=== PATIENT | male | born 1945 | race Caucasian/White ===

== ENCOUNTER 2018-12-28 16:09 | Inpatient (IN) | payer MEDICARE ==
[~2018-12-28] VITALS: Ht 185.4 cm; Wt 84.6 kg
[2018-12-28] MEDS: LevoFLOXacin IV 750 MG in APPROPRIATE DILUENT 1 EA IV SCH (00:50)
[~2018-12-28 16:09] MED LIST: AUGM875T28 PO; IBUP200C25 PO; TYLE325T5 PO; ZANT150T15 PO
[2018-12-28] MEDS ORDERED: NS 500 ML IV ONE ×2 (16:45→20:45)
[2018-12-28] MEDS ORDERED: ACETAMINOPHEN TAB 650MG DOSE (2X325MG) PO ONE (16:45)
[2018-12-28] MEDS ORDERED: ALBUTEROL SULFATE 2.5 MG/0.5 ML INH NEB SOLN INH ONE (16:45)
[2018-12-28] MEDS ORDERED: IPRATROPIUM 0.5MG/ALBUTEROL 2.5MG INH SOL UD 3ML (DUONEB)(J7620) NEB ONE (16:45)
--- NOTE | 2018-12-28 17:45 | REP ---
Clinical: Cough and dyspnea. Technique: AP and lateral. Findings: There is a large right hilar mass which represents a new finding as compared to prior chest CT dated 03/26/2016. Basilar atelectasis and possible small right pleural reaction cannot be excluded. Remainder examination demonstrates chronic appearing changes. Cardiac silhouette is within normal limits. Skeletal structures demonstrate degenerative changes. Impression: Large right hilar mass and suspected basilar atelectasis with small right pleural reaction. Electronically Signed by Jose Appiah MD 12/28/2018 05:36 P
[2018-12-28 18:16] LABS: VENOUS BASE EXCESS 6.5 (-2.0-2.0); VENOUS HCO3 36.8 MEQ/L (23.0-27.0); VENOUS O2 SATURATION 85.3 % (60.0-80.0); VENOUS PARTIAL PRESSURE CO2 83.3 mmHg (38.0-50.0); VENOUS PARTIAL PRESSURE O2 54.5 mmHg (30.0-50.0); VENOUS PH 7.263 UNITS (7.330-7.430); VENOUS TOTAL CO2 39.4 MEQ/L (24.0-28.0)
[2018-12-28 18:25] LABS: BASO % 0.2 % (0.0-1.0); EOS % 0.1 % (0.0-3.0); HEMATOCRIT 44.4 % (42.0-52.0); HEMOGLOBIN 13.4 g/dl (13.5-17.5); LYMPH # 0.6 10^3/uL (1.5-4.5); LYMPH % 4.7 % (24.0-44.0); MEAN CORPUSCULAR HEMOGLOBIN 28.8 pg (27.0-33.0); MEAN CORPUSCULAR HGB CONC 30.2 g/dl (32.0-36.5); MEAN CORPUSCULAR VOLUME 95.3 fl (80.0-96.0); MONO # 1.3 10^3/uL (0.0-0.8); MONO % 10.9 % (0.0-5.0); NEUTROPHILS # 9.8 10^3/uL (1.8-7.7); NEUTROPHILS % 83.7 % (36.0-66.0); PLATELET COUNT, AUTOMATED 235 10^3/uL (150-450); RED BLOOD COUNT 4.66 10^6/uL (4.30-6.10); WHITE BLOOD COUNT 11.7 10^3/uL (4.0-10.0)
[2018-12-28 18:48] LABS: INFLUENZA A AMPLIFICATION NEGATIVE (NEGATIVE); INFLUENZA B AMPLIFICATION NEGATIVE (NEGATIVE)
[2018-12-28 18:56] LABS: ALBUMIN 3.3 GM/DL (3.2-5.2); ALT/SGPT 26 U/L (12-78); BILIRUBIN,DIRECT 0.3 MG/DL (0.0-0.2); BILIRUBIN,TOTAL 0.6 MG/DL (0.2-1.0); BLOOD UREA NITROGEN 21 MG/DL (7-18); CALCIUM LEVEL 8.3 MG/DL (8.8-10.2); CARBON DIOXIDE LEVEL 37 MEQ/L (21-32); CHLORIDE LEVEL 103 MEQ/L (98-107); CPK CREATINE PHOSPHOKINASE 48 U/L (39-308); CREATININE FOR GFR 0.91 MG/DL (0.70-1.30); GLOMERULAR FILTRATION RATE > 60.0 (>42); GLUCOSE, FASTING 98 MG/DL (70-100); MB/CK RELATIVE INDEX 2.71 (< OR =4); NT-PRO BNP 1714 PG/ML (<450); POTASSIUM SERUM 4.2 MEQ/L (3.5-5.1); SODIUM LEVEL 142 MEQ/L (136-145); THYROID STIMULATING HORMONE 0.808 uIU/ML (0.358-3.740); TOTAL PROTEIN 7.1 GM/DL (6.4-8.2); TROPONIN I 0.03 NG/ML (< 0.10)
[2018-12-28 19:04] LABS: INR 1.14; PROTHROMBIN TIME 14.8 SECONDS (12.1-14.4)
[2018-12-28] MEDS ORDERED: ISOVUE-370 76% 100ML VIAL (Q9967) As Ordered ONE (19:41)
--- NOTE | 2018-12-28 20:07 | ECGEPIP ---
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
--- NOTE | 2018-12-28 20:17 | REP ---
Clinical: Hypoxia. Technique: Axial contrast enhanced images from the thoracic inlet to the upper abdomen with coronal and sagittal re-formations using pulmonary embolus technique. 100 ml Isovue 370 intravenous contrast material administered without complication. Comparison: 03/26/2016. Findings: There is a 6.8 cm mass along the medial right upper lobe with mass effect and possible intraluminal extension/neoplastic thrombus into the superior vena cava as well as suspected obstruction of the right subclavian vein causing subcutaneous edema and infiltration in the right thoracic inlet and axillary region. These findings should be correlated with physical examination. Mediastinal adenopathy is appreciated with pretracheal lymph nodes measuring up to 2.5 cm. Right lower lobe consolidation along with bibasilar atelectasis and small right pleural reaction are also appreciated. Diffuse underlying chronic mild/moderate COPD/interstitial changes noted. No obvious pulmonary arterial embolus is appreciated. Thoracic aorta demonstrates atherosclerotic changes without aneurysm or dissection. Mild cardiomegaly and atherosclerotic changes to the coronary arteries are also identified without pericardial effusion. Osseous structures demonstrate degenerative changes without focal abnormality. Impression: 1. 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 Associated mediastinal adenopathy up to 2.5 cm. 2. Right lower lobe consolidation along with bibasilar atelectasis and small right pleural reaction. 3. Mild/moderate chronic COPD/emphysematous changes and scattered age-related interstitial changes. Electronically Signed by Jose Appiah MD 12/28/2018 08:08 P
[2018-12-28] MEDS ORDERED: AZITHROMYCIN 250 MG TAB PO ONE (20:45)
[2018-12-28] MEDS ORDERED: cefTRIAXone SOD 1 GM in D5W MINI-BAG PLUS 50 ML IV ONE (20:45)
[2018-12-28] MEDS ORDERED: ENOXAPARIN 100MG/1ML SYRINGE (J1650) SC ONE (20:45)
[2018-12-28] MEDS ORDERED: IPRATROPIUM 0.5MG/ALBUTEROL 2.5MG INH SOL UD 3ML (DUONEB)(J7620) NEB PRN (23:30)
[2018-12-29] VITALS (14 sets, daily range): BP systolic 91–127; BP diastolic 58–79; O2SAT 95–99
[2018-12-29] MEDS: LevoFLOXacin IV 750 MG in APPROPRIATE DILUENT 1 EA IV SCH ×2 (00:30→23:30)
--- NOTE | 2018-12-29 00:30 | HPEPDOC ---
[facility] Medical History & Physical Date of Admission Dec 28, 2018 Other Provider John Villegas MD History and Physical CHIEF COMPLAINT: shortness of breath HISTORY OF PRESENT ILLNESS: Roverto Bliss is a 73 YO M with extensive smoking history presents to the ED with SOB, decreased appetite, weakness and worsening fatigue for the past week. He does not have a primary care physician and thus has no known past medical history. He is accompanied by his daughter, who sees him every day at his house and has noticed he has not been eating his meals and today his breathing is labored with very light activity. He has cut down his smoking recently from 1-2 packs a day to 1-3 cigarettes a day. Usually, he is able to get around and can walk 2-3 blocks without fatigue or shortness of breath but lately he cannot make it from his living room to the bathroom without getting short of breath. He sleeps in a recliner because he is unable to lay flat comfortably. He has had a fever and chills for one day, reports headaches and lightheadedness. He denies any palpitations, face or neck swelling. PAST MEDICAL HISTORY: 1. Tobacco dependence PAST SURGICAL HISTORY: 1. Appendectomy 2. Tonsillectomy 3. Cholecystectomy SOCIAL HISTORY: . Current smoker with >50 pack year history Resides in [place]. Denies alcohol consumption FAMILY HISTORY: Noncontributory ALLERGIES: Please see below. REVIEW OF SYSTEMS: A 10-point ROS was conducted and was negative other than what was mentioned in the HPI HOME MEDICATIONS: Please see below. PHYSICAL EXAMINATION: VITAL SIGNS: Temperature 99.3, pulse 96, respiratory rate 24, blood pressure 117/56, pulse oximetry 94% on 6LNC GENERAL APPEARANCE: Tired-appearing, appears stated age, laying in bed sleeping, difficult to arouse due to fatigue/hearing difficulty, purse-lipped breathing HEENT: absence of teeth, moist mucus membranes, no swelling, no thyromegaly CARDIOVASCULAR: RRR, no murmurs/rubs/gallops, normal S1,S2 LUNGS: Decreased breath sounds in R lower and middle lobe, slight wheezing on exam, poor air entry, patient appears to be purse-lipped breathing ABDOMEN: Slightly tender to palpation in RUQ and RLQ, no guarding, +BS, soft MUSCULOSKELETAL: moves all extremities well EXTREMITIES: 1+ pitting edema in lower extremities bilaterally, no clubbing NEUROLOGICAL: CN 2-12 intact with no focal deficits appreciated PSYCHIATRIC: normal mood/normal affect LABORATORY DATA: See below. IMAGING: CXR: Large right hilar mass and suspected basilar atelectasis with small right pleural reaction. CT-A: 1. Large medial RUL mass with evidence for obstruction of the R Subclavian Chon as well as intraluminal extension/neoplastic thrombus into the adjacent Superior Vena Cava. Associated mediastinal adenopathy up to 2.5cm. 2. RLL consolidation along with bibasilar atelectasis and small R pleural reaction. 3. Mild/moderate chronic COPD/emphysematous changes and scattered age-related interstitial changes. MICROBIOLOGY: Please see below. ASSESSMENT: This is a 73 YO M with extensive tobacco use history with no known past medical history who presents with several days shortness of breath, weakness, decreased appetite found to have a large medial RUL mass concerning for obstruction of the R subclavian vein and suspicious for SVC syndrome. He will be admitted to the ICU for close observation. PLAN: 1. RUL mass: Per the patient's daughter, the patient was last seen 5 years ago by Collections Analyst Dr. Villegas for occupational exposure and suspicious lung nodule (location unknown). The patient was lost to follow up for surveillance. Given that this large mediastinal RUL mass appears to be obstructing the R subclavian vein, Dr. Sofia was called for concern of emergent care for SVC syndrome. -Clinical exam does not demonstrate facial or neck edema, no upper extremity edema or plethora at this time. Patient has no positional symptoms (worsening while bending forward or laying down) -Patient was found to be somewhat hypotensive (sBP 100s) on admission, but has responded appropriately to fluid resuscitation -Lovenox 1mg/kg Q12H -Continuous oxygen therapy +/- BiPaP if needed overnight -Consider oncology consultation in AM 2. Shortness of breath: Patient likely has undiagnosed COPD 2/2 extensive smoking history -CT-A suggests RLL consolidation, possibly community acquired PNA -Empiric Levaquin -DuoNebs Q2H PRN -Continuous Oxygen therapy and titration for saturation 88-92% -VBG demonstrates CO2 retention; likely chronic 3. Possible fluid overload: patient has peripheral edema and occasional wet cough; family reports peripheral edema is worse than usual -Will be cautious with fluid resuscitation for now -BNP 1714 -Consider Echo in the AM for further management DVT ppx: On Lovenox CODE STATUS: DNR/DNI Vital Signs Vital Signs Date Time Temp Pulse Resp B/P (MAP) Pulse Ox O2 Delivery O2 Flow Rate FiO2 12/28/18 23:17 101 24 90 Nasal Cannula 6.0 12/28/18 23:16 117/56 (76) 12/28/18 20:10 98.8 Laboratory Data Labs 24H Laboratory Tests 2 12/28/18 17:55: Immature Granulocyte % (Auto) 0.4, White Blood Count 11.7H, Red Blood Count 4.66, Hemoglobin 13.4L, Hematocrit 44.4, Mean Corpuscular Volume 95.3, Mean Corpuscular Hemoglobin 28.8, Mean Corpuscular Hemoglobin Concent 30.2L, Red Cell Distribution Width 14.3, Platelet Count 235, Neutrophils (%) (Auto) 83.7H, Lymphocytes (%) (Auto) 4.7L, Monocytes (%) (Auto) 10.9H, Eosinophils (%) (Auto) 0.1, Basophils (%) (Auto) 0.2, Neutrophils # (Auto) 9.8H, Lymphocytes # (Auto) 0.6L, Monocytes # (Auto) 1.3H, Eosinophils # (Auto) 0.0, Basophils # (Auto) 0.0, Nucleated Red Blood Cells % (auto) 0.0, Prothrombin Time 14.8H, Prothromb Time International Ratio 1.14, Blood Gas Bicarbonate Standard 30.0, Venous Blood pH 7.263L, Venous Blood Partial Pressure CO2 83.3H, Venous Blood Partial Pressure O2 54.5H, Venous Blood Total Carbon Dioxide 39.4H, Venous Blood HCO3 36.8H, Venous Blood Oxygen Saturation 85.3H, Venous Blood Base Excess 6.5H, Anion Gap 2L, Glomerular Filtration Rate > 60.0, Lactic Acid Level 0.8, Calcium Level 8.3L, Aspartate Amino Transf (AST/SGOT) 21, Alanine Aminotransferase (ALT/SGPT) 26, Alkaline Phosphatase 89, Total Bilirubin 0.6, Direct Bilirubin 0.3H, Total Creatine Kinase 48, Creatine Kinase MB 1.0, Creatine Kinase MB Relative Index 2.71, Troponin I 0.03, TX-Kdv-N-Type Natriuretic Peptide 1714H, Total Protein 7.1, Albumin 3.3, Albumin/Globulin Ratio 0.87L, Thyroid Stimulating Hormone (TSH) 0.808, Influenza Type A (RT-PCR) NEGATIVE, Influenza Type B (RT-PCR) NEGATIVE CBC/BMP Laboratory Tests 12/28/18 17:55 Red Blood Count 4.66, Mean Corpuscular Volume 95.3, Mean Corpuscular Hemoglobin 28.8, Mean Corpuscular Hemoglobin Concent 30.2 L, Red Cell Distribution Width 14.3, Neutrophils (%) (Auto) 83.7 H, Lymphocytes (%) (Auto) 4.7 L, Monocytes (%) (Auto) 10.9 H, Eosinophils (%) (Auto) 0.1, Basophils (%) (Auto) 0.2, Neutrophils # (Auto) 9.8 H, Lymphocytes # (Auto) 0.6 L, Monocytes # (Auto) 1.3 H, Eosinophils # (Auto) 0.0, Basophils # (Auto) 0.0 Microbiology Microbiology 12/28/18 Blood Culture, Received Pending 12/28/18 Blood Culture, Received Pending Home Medications No Active Prescriptions or Reported Meds Allergies Coded Allergies: No Known Allergies (Unverified , 01/26/14) GME ATTESTATION GME ATTESTATION My faculty preceptor for this patient encounter was physically present during the encounter and was fully available. All aspects of the patient interview, examination, medical decision making process, and medical care plan development were reviewed and approved by the faculty preceptor. The faculty preceptor is aware and concurs with the plan as stated in the body of this note and will attest to such by his/her cosignature. ATTENDING NOTE ATTENDING ATTESTATION: I discussed and reviewed the findings and plan with resident. I have personally assessed patient at bedside and agreed with resident's assessment and plans. Will add solumedrol for likely COPD PAMELA MUNOZ MD Dec 29, 2018 00:30 SUE DELGADO MD Dec 29, 2018 05:15
[2018-12-29] MEDS: IPRATROPIUM 0.5MG/ALBUTEROL 2.5MG INH SOL UD 3ML (DUONEB)(J7620) NEB SCH ×6 (02:03→20:35)
[2018-12-29] MEDS ORDERED: PREVNAR 13 VACCINE SYRINGE (CPT CODE:90670) IM SCH (03:00)
[2018-12-29] MEDS ORDERED: MORPHINE 4 MG/ML 1ML VIAL/SYRINGE (J2270) IV ONE (04:15)
[2018-12-29] MEDS ORDERED: MORPHINE 4 MG/ML 1ML VIAL/SYRINGE (J2270) As Ordered ONE (04:15)
[2018-12-29 05:19] LABS: BLOOD UREA NITROGEN 18 MG/DL (7-18); CALCIUM LEVEL 8.1 MG/DL (8.8-10.2); CARBON DIOXIDE LEVEL 35 MEQ/L (21-32); CHLORIDE LEVEL 104 MEQ/L (98-107); CREATININE FOR GFR 0.81 MG/DL (0.70-1.30); GLOMERULAR FILTRATION RATE > 60.0 (>42); GLUCOSE, FASTING 88 MG/DL (70-100); POTASSIUM SERUM 4.2 MEQ/L (3.5-5.1); SODIUM LEVEL 142 MEQ/L (136-145)
[2018-12-29] MEDS: methylPREDNISolone INJ 40 MG/1 ML VIAL (J2920) IV SCH ×2 (05:30→17:20)
[2018-12-29 06:45] LABS: HEMATOCRIT 40.9 % (42.0-52.0); MEAN CORPUSCULAR HEMOGLOBIN 28.6 pg (27.0-33.0); MEAN CORPUSCULAR HGB CONC 29.3 g/dl (32.0-36.5); MEAN CORPUSCULAR VOLUME 97.4 fl (80.0-96.0); PLATELET COUNT, AUTOMATED 220 10^3/uL (150-450); WHITE BLOOD COUNT 8.5 10^3/uL (4.0-10.0)
[2018-12-29] MEDS: ENOXAPARIN 100MG/1ML SYRINGE (J1650) SC SCH ×2 (08:07→20:13)
--- NOTE | 2018-12-29 09:57 | CR.PDOC ---
General Date of Consultation: Dec 29, [address] Sofia CONSULTATION REPORT FOR: Dr John PCP: Addis Zarate NP. HPI: 73 year old M with h/o tobacco use, otherwise denies PMH and takes no meds at home. Follows with Addis Zarate NP but only sees her as needed as per pt dtr at bedside who provides most of hx. The dtr states that he has not been feeling well for the past 2-3 weeks, had used some Nyquil for cough. yesterday the pt called his dtr and states he was SOB. EMS was called and pt came to ED for evaluation. 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 Hospitalist has requested consultation for possible SVC Syndrome. The pt denies pain currently and states breathing is comfortable. Denies CP. Denies any head, neck or UE swelling. Denies any fevers, chills, weakness, fatigue, Headache, Chest Pain, Shortness of breath, cough, palpitations, abdominal pain, N/V/D or changes in bowel or bladder habits. PMHx: tobacco use H/O Pulmonary nodule, previously followed as per Dr Villegas per dtr, Dtr reports previous PET neg, last seen about 5 yrs ago. PSHX: 1. Appendectomy 2. Tonsillectomy 3. 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 FAMHX: Father: CVA Siblings: 2 brothers Alive, unknown Children: 3 Alive, well ROS: As noted in HPI, otherwise 11pt ROS of systems reviewed and unremarkable. PE: GEN: 73yoM, appears stated age. No acute distress. Alert and oriented x 3. HEENT: Normocephalic, atraumatic. Sclera are nonicteric. Conjunctiva without injection. No facial asymmetry. Moist mucous membranes. Dentition poor. There is no noted edema of head or neck. CHEST: Regular rate and rhythm, +S1, +S2. There are superficial veins noted across the chest B/L. LUNGS: Good A/E bilaterally. No wheezes, rales, or rhonchi. ABD: Round, soft, non-tender, non-distended. +Bowel sounds throughout. No rebound or guarding. No costovertebral angle tenderness. EXT: There is no noted edema of UEs B/L. No lower extremity edema appreciated. SKIN: [place], dry, warm. No rashes. NEURO: Alert and oriented x 3. No focal deficits appreciated. CXR Large right hilar mass and suspected basilar atelectasis with small right pleural reaction. Electronically Signed by Jose Appiah MD 12/28/2018 05:36 P CTA chest 1. 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 Associated mediastinal adenopathy up to 2.5 cm. 2. Right lower lobe consolidation along with bibasilar atelectasis and small right pleural reaction. 3. Mild/moderate chronic COPD/emphysematous changes and scattered age-related interstitial changes. Electronically Signed by Jose Appiah MD 12/28/2018 08:08 P A&P: 73 year old M with h/o tobacco use, otherwise denies PMH and takes no meds at home. Follows with Addis Zarate NP but only sees her as needed as per pt dtr at bedside who provides most of hx. The dtr states that he has not been feeling well for the past 2-3 weeks, had used some Nyquil for cough. yesterday the pt called his dtr and states he was SOB. EMS was called and pt came to ED for evaluation. 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 Hospitalist has requested consultation for possible SVC Syndrome. 1. RUL mass. 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 Associated mediastinal adenopathy up to 2.5 cm. The pt is reviewed and examined as per Dr Sofia, Vascular Surgery. The pt has no noted head, neck or UE edema. The pt is noted to have superficial collateral vessels across the chest B/l. Not C/W SVC Syndrome. Would recommend to continue with Lovenox 90 mg SQ Q12hr. Would recommend consider Thoracic Surgery/Pulmonary Clt for consideration of biopsy/bronchoscopy. 2. H/O longstanding Tobacco Use. 3. Shortness of breath CTA suggests RLL consolidation, possibly CAP BC x 2 pending. SC pending. Mgmt as per primary team, empiric Levaquin IV DuoNebs Q2H PRN Supplemental O2. Thank you for your consultation. We will continue to follow along with you. Vital Signs/I&O Vital Signs Date Time Temp Pulse Resp B/P (MAP) Pulse Ox O2 Delivery O2 Flow Rate FiO2 12/29/18 08:00 6.0 12/29/18 08:00 98.6 95 15 118/72 (87) 94 12/29/18 06:00 50 12/29/18 02:04 Nasal Cannula I&O- Last 24 Hours up to 6 AM 12/29/18 06:00 Intake Total 1340 ml Output Total 250 ml Balance 1090 ml Laboratory Data Labs 24H Laboratory Tests 2 12/28/18 17:55: Immature Granulocyte % (Auto) 0.4, White Blood Count 11.7H, Red Blood Count 4.66, Hemoglobin 13.4L, Hematocrit 44.4, Mean Corpuscular Volume 95.3, Mean Corpuscular Hemoglobin 28.8, Mean Corpuscular Hemoglobin Concent 30.2L, Red Cell Distribution Width 14.3, Platelet Count 235, Neutrophils (%) (Auto) 83.7H, Lymphocytes (%) (Auto) 4.7L, Monocytes (%) (Auto) 10.9H, Eosinophils (%) (Auto) 0.1, Basophils (%) (Auto) 0.2, Neutrophils # (Auto) 9.8H, Lymphocytes # (Auto) 0.6L, Monocytes # (Auto) 1.3H, Eosinophils # (Auto) 0.0, Basophils # (Auto) 0.0, Nucleated Red Blood Cells % (auto) 0.0, Prothrombin Time 14.8H, Prothromb Time International Ratio 1.14, Blood Gas Bicarbonate Standard 30.0, Venous Blood pH 7.263L, Venous Blood Partial Pressure CO2 83.3H, Venous Blood Partial Pressure O2 54.5H, Venous Blood Total Carbon Dioxide 39.4H, Venous Blood HCO3 36.8H, Venous Blood Oxygen Saturation 85.3H, Venous Blood Base Excess 6.5H, Anion Gap 2L, Glomerular Filtration Rate > 60.0, Lactic Acid Level 0.8, Calcium Level 8.3L, Aspartate Amino Transf (AST/SGOT) 21, Alanine Aminotransferase (ALT/SGPT) 26, Alkaline Phosphatase 89, Total Bilirubin 0.6, Direct Bilirubin 0.3H, Total Creatine Kinase 48, Creatine Kinase MB 1.0, Creatine Kinase MB Relative Index 2.71, Troponin I 0.03, KX-Cip-H-Type Natriuretic Peptide 1714H, Total Protein 7.1, Albumin 3.3, Albumin/Globulin Ratio 0.87L, Thyroid Stimulating Hormone (TSH) 0.808, Influenza Type A (RT-PCR) NEGATIVE, Influenza Type B (RT-PCR) NEGATIVE 12/29/18 04:45: Nucleated Red Blood Cells % (auto) 0.0, Anion Gap 3L, Glomerular Filtration Rate > 60.0, Calcium Level 8.1L, Blood Urea Nitrogen 18, Creatinine 0.81, Sodium Level 142, Potassium Level 4.2, Chloride Level 104, Carbon Dioxide Level 35H, Magnesium Level 2.0 CBC/BMP Laboratory Tests 12/28/18 17:55 Red Blood Count 4.66, Mean Corpuscular Volume 95.3, Mean Corpuscular Hemoglobin 28.8, Mean Corpuscular Hemoglobin Concent 30.2 L, Red Cell Distribution Width 14 .3, Neutrophils (%) (Auto) 83.7 H, Lymphocytes (%) (Auto) 4.7 L, Monocytes (%) (Auto) 10.9 H, Eosinophils (%) (Auto) 0.1, Basophils (%) (Auto) 0.2, Neutrophils # (Auto) 9.8 H, Lymphocytes # (Auto) 0.6 L, Monocytes # (Auto) 1.3 H, Eosinophils # (Auto) 0.0, Basophils # (Auto) 0.0 12/29/18 04:45 Red Blood Count 4.20 L, Mean Corpuscular Volume 97.4 H, Mean Corpuscular Hemoglobin 28.6, Mean Corpuscular Hemoglobin Concent 29.3 L, Red Cell Distribution Width 14.5, Calcium Level 8.1 L Microbiology Microbiology 12/28/18 Blood Culture, Received Pending 12/28/18 Blood Culture, Received Pending 12/29/18 Gram Stain, Received Pending 12/29/18 Sputum Culture, Received Pending Allergies Coded Allergies: No Known Allergies (Unverified , 01/26/14) Home Medications No Active Prescriptions or Reported Meds Jessi Parekh Dec 29, 2018 09:57
--- NOTE | 2018-12-29 12:05 | IPNPDOC ---
Date Seen The patient was seen on 12/29/18. Progress Note SUBJECTIVE: Patient is a 73 yo male who was admitted for large lung mass and sob. He said he is not feeling much since he came in, but could say what was really bothering him. He denied any fever, chills, chest pain. OBJECTIVE Physical exam Gen: NAD, chronically ill, vital signs stable HEENT: normocephalic, atraumatic, no discharge from ears or nose, no oropharyngeal erythema or exudate, neck is supple, no lymphadenopathy, trachea midline CVS: RRR, normal S1n S2, no murmur, rubs, or gallops, no edema, no jvd Resp: diffuse rhonchi throughout Abd : soft nontender, normal bowel sounds, no rebound tenderness or guarding MSK: no swelling, generalized weakness, decreased range of motion, but moves all extremities Neuro: AOAx2, no confusion, no focal deficit Psych: normal mood and affect, LABORATORY DATA, IMAGING STUDIES, MICROBIOLOGY: Please see below. - reviewed Echocardiogram: [pending]. DVT prophylaxis ordered?: [y] ASSESSMENT AND PLAN: 1. RUL mass/. and ? thrombos -Lovenox 1mg/kg Q12H -Continuous oxygen therapy +/- BiPaP if needed overnight -surgery consulted 2. Shortness of breath: Patient likely has undiagnosed COPD 2/2 extensive smoking history, RUL mass , ?thrombos, RLL consolidation, possibly community acquired PNA -c/w Levaquin -DuoNebs Q2H PRN -c/w methylpred 40mg q12h -Continuous Oxygen therapy and titration for saturation 88-92% -VBG demonstrates CO2 retention; likely chronic -mental status stable, bipap at night -f/u abg 3. Possible fluid overload: patient has peripheral edema and occasional wet cough; family reports peripheral edema is worse than usual -Will be cautious with fluid resuscitation for now -BNP 1714 -Consider Echo in the AM for further management DVT ppx: On Lovenox CODE STATUS: DNR/DNI DISPOSITION: pending clinical improvement and surgery consult VS, I&O, 24H, Fishbone Vital Signs/I&O Vital Signs Date Time Temp Pulse Resp B/P (MAP) Pulse Ox O2 Delivery O2 Flow Rate FiO2 12/29/18 10:00 96 24 91/66 (74) 93 50 12/29/18 08:00 6.0 4/5/19 08:00 98.6 12/29/18 02:04 Nasal Cannula I&O- Last 24 Hours up to 6 AM 12/29/18 06:00 Intake Total 1340 ml Output Total 250 ml Balance 1090 ml Laboratory Data 24H LABS Laboratory Tests 2 12/28/18 17:55: Immature Granulocyte % (Auto) 0.4, White Blood Count 11.7H, Red Blood Count 4.66, Hemoglobin 13.4L, Hematocrit 44.4, Mean Corpuscular Volume 95.3, Mean Corpuscular Hemoglobin 28.8, Mean Corpuscular Hemoglobin Concent 30.2L, Red Cell Distribution Width 14.3, Platelet Count 235, Neutrophils (%) (Auto) 83.7H, Lymphocytes (%) (Auto) 4.7L, Monocytes (%) (Auto) 10.9H, Eosinophils (%) (Auto) 0.1, Basophils (%) (Auto) 0.2, Neutrophils # (Auto) 9.8H, Lymphocytes # (Auto) 0.6L, Monocytes # (Auto) 1.3H, Eosinophils # (Auto) 0.0, Basophils # (Auto) 0.0, Nucleated Red Blood Cells % (auto) 0.0, Prothrombin Time 14.8H, Prothromb Time International Ratio 1.14, Blood Gas Bicarbonate Standard 30.0, Venous Blood pH 7.263L, Venous Blood Partial Pressure CO2 83.3H, Venous Blood Partial Pressure O2 54.5H, Venous Blood Total Carbon Dioxide 39.4H, Venous Blood HCO3 36.8H, Venous Blood Oxygen Saturation 85.3H, Venous Blood Base Excess 6.5H, Anion Gap 2L, Glomerular Filtration Rate > 60.0, Lactic Acid Level 0.8, Calcium Level 8.3L, Aspartate Amino Transf (AST/SGOT) 21, Alanine Aminotransferase (ALT/SGPT) 26, Alkaline Phosphatase 89, Total Bilirubin 0.6, Direct Bilirubin 0.3H, Total Creatine Kinase 48, Creatine Kinase MB 1.0, Creatine Kinase MB Relative Index 2.71, Troponin I 0.03, PI-Sci-R-Type Natriuretic Peptide 1714H, Total Protein 7.1, Albumin 3.3, Albumin/Globulin Ratio 0.87L, Thyroid Stimulating Hormone (TSH) 0.808, Influenza Type A (RT-PCR) NEGATIVE, Influenza Type B (RT-PCR) NEGATIVE 12/29/18 04:45: Nucleated Red Blood Cells % (auto) 0.0, Anion Gap 3L, Glomerular Filtration Rate > 60.0, Calcium Level 8.1L, Blood Urea Nitrogen 18, Creatinine 0.81, Sodium Level 142, Potassium Level 4.2, Chloride Level 104, Carbon Dioxide Level 35H, Magnesium Level 2.0 CBC/BMP Laboratory Tests 12/28/18 17:55 Red Blood Count 4.66, Mean Corpuscular Volume 95.3, Mean Corpuscular Hemoglobin 28.8, Mean Corpuscular Hemoglobin Concent 30.2 L, Red Cell Distribution Width 14.3, Neutrophils (%) (Auto) 83.7 H, Lymphocytes (%) (Auto) 4.7 L, Monocytes (%) (Auto) 10.9 H, Eosinophils (%) (Auto) 0.1, Basophils (%) (Auto) 0.2, Neutrophils # (Auto) 9.8 H, Lymphocytes # (Auto) 0.6 L, Monocytes # (Auto) 1.3 H, Eosinophils # (Auto) 0.0, Basophils # (Auto) 0.0 12/29/18 04:45 Red Blood Count 4.20 L, Mean Corpuscular Volume 97.4 H, Mean Corpuscular Hemoglobin 28.6, Mean Corpuscular Hemoglobin Concent 29.3 L, Red Cell Distribution Width 14.5, Calcium Level 8.1 L Microbiology Microbiology 12/28/18 Blood Culture, Received Pending 12/28/18 Blood Culture, Received Pending 12/29/18 Gram Stain - Final, Resulted 12/29/18 Sputum Culture, Resulted Pending BRIGIDO EPPS MD Dec 29, 2018 12:05
[2018-12-29 12:43] LABS: ABG BASE EXCESS 5.1 (-2.0-2.0); ABG HCO3 34.5 MEQ/L (22.0-26.0); ABG O2 SATURATION 95.5 % (95.0-99.0); ABG PARTIAL PRESSURE O2 80.5 mmHg (75.0-100.0); ABG TOTAL CO2 36.9 MEQ/L (23.0-31.0); ABG pH (ARTERIAL) 7.269 UNITS (7.350-7.450)
[2018-12-29 12:46] LABS: ABG PARTIAL PRESSURE CO2 77.1 mmHg (35.0-45.0)
[2018-12-29] MEDS: D5W/0.45% SODIUM CHLORIDE 1,000 ML IV SCH (14:22)
--- NOTE | 2018-12-29 14:40 | CR ---
DATE OF CONSULTATION: 12/29/2018 HISTORY OF PRESENT ILLNESS: Mr. Bliss is a 73-year-old male with an extensive smoking history, current active smoker, who presented to the ED with increasing shortness of breath, cough, fatigue and weakness for the past week. The patient has a history of some chronic cough, however he does feel it has been worsening more recently and is productive of white sputum, has not had any episodes of hemoptysis. He has noted some increasing shortness of breath with exertion as well as some increased wheezing. The patient also had a history of subjective chills, did not take a temperature at home so is unclear about fevers. He was also noted to have increasing fatigue and weakness as well as with some decreased appetite. The patient also had been noticing some complaints of pain in his right hip and was noticing more of a right lower extremity weakness and some difficulty ambulating due to this pain and weakness more recently. He had denied any chest pain although in the hospital he did note some mid sternal discomfort. As per his family at the bedside, he had not had any changes in his mental status. He denied any headaches, no face swelling or upper extremity swelling. No redness in his face. He denied any lower extremity edema. He does have some orthopnea. He sleeps in a recliner because he has unable to lay flat comfortably. In the ED the patient was febrile to 101 on admission, was noted to be tachycardic as well with a pulse of 119 and mildly tachypneic with a respiratory rate of 25. His blood pressure was normotensive and he was also hypoxemic, was 88% on admission. He was given antibiotics initially with ceftriaxone and azithromycin in the ED as well as IV fluid bolus. The patient received approximately 1 liter fluid bolus and he was noted on admission as per the hospitalist to have some lower extremity edema with an elevated BNP and there was concern for fluid overload and so he was not given further IV fluid resuscitation, especially as he was normotensive at that time. The patient was placed on a VentiMask and admitted to the ICU. Here the patient reports that he has had some improvement in his breathing. He does continue to have cough, which is occasionally productive of some white mucus. His wheezing has also improved. PAST MEDICAL/PAST SURGICAL HISTORY: The patient has not seen a primary doctor in a few years. History of tobacco dependence. Appendectomy. Tonsillectomy Cholecystectomy. SOCIAL HISTORY: Patient is . His recently about 6 weeks ago. She had COPD. The patient smoked approximately two packs a day since his teens, about a month ago had cut back smoking significantly to only 1 or 2 cigarettes a day. He denies any alcohol use. He used to work in the [employer] and has had exposures to asbestos and other dusts. FAMILY HISTORY: Father with a history of CVA. ALLERGIES: No known medication allergies. HOME MEDICATIONS: Patient is not on any home medications. He is not on any inhalers for his breathing either. PHYSICAL EXAMINATION: T-max 101, T-current 98.6, pulse is 95, respirations 15, blood pressure 118/72, O2 sat 94-95% on 50% VentiMask. GENERAL: Patient appears older than his stated age, is frail-appearing, sitting in bed, is alert and oriented and responding appropriately. HEENT: He is normocephalic, atraumatic. The patient has various seborrheic keratosis on his face and trunk. He has moist mucous membranes. His tongue has a thick yellow plaque and some erythema. NECK: Supple. There is no palpable adenopathy. His left thyroid appears slightly larger than the right. Trachea is midline. CARDIOVASCULAR: Regular rate and rhythm. Normal S1-S2. Unable to appreciate any murmurs. PMI is displaced laterally. LUNGS: Diminished breath sounds bilaterally. He has a slight wheeze in the right upper lung. There are no significant rhonchi or crackles on exam. ABDOMEN: Is soft, nondistended, nontender. EXTREMITIES: There was no significant pitting edema noted bilaterally. LABORATORY DATA: WBC has trended down to 8.5, hemoglobin is 12.0, platelets 220. Chemistries: Sodium 142, potassium 4.2, chloride 104, bicarb 35, BUN 18, creatinine 0.81, glucose is 88. BNP was 1714. First set of cardiac enzymes was negative. TSH was normal. Lactic acid was normal. IMAGING: CT angiogram showed a right upper lobe anterior mass with spiculation extending into the mediastinum, approximately 6.8 cm in size, with some compression and possible intraluminal extension into the superior vena cava. There is a thrombus noted in the superior vena cava as well. There is suspected obstruction of the right subclavian vein causing some subcutaneous edema and infiltration in the right thoracic inlet and axillary region. There is some mediastinal adenopathy noted as well in the paratracheal lymph node on the right and a possibly in the subcarinal. There is some evidence of previous granulomatous disease with calcifications in his lymph nodes. He also has a right lower lobe infiltrate with trace effusion and pleural thickening. There is atelectasis in the bases bilaterally. There is also emphysematous changes. The patient also has some calcifications in his spleen suggesting a prior granulomatous disease. ASSESSMENT/PLAN: The patient is a 73-year-old male with no known medical history, has not followed up with a primary doctor in many years, had previously had a history of pulmonary nodules and was seen by pulmonary, but his last followup was in 2016. He reportedly had a negative PET CT and was lost to followup after that. The patient has an extensive smoking history, is still currently smoking; however, has significantly cut back, was previously two packs a day since his teens. He presented now with complaints of increased shortness of breath, chills, fatigue, weakness and cough. The patient was febrile on admission with leukocytosis and tachycardic. Patient with sepsis likely secondary to pneumonia as he was noted to have a right lower lobe infiltrate on imaging consistent with pneumonia. The patient was also found to be hypoxemic, likely secondary to COPD with an acute exacerbation secondary to his pneumonia. He does have emphysema on imaging and suspect that he has undiagnosed COPD. He did have some wheezing as well on exam. Also of note, the patient had a right upper lobe mass with some compression versus possible extension into his superior vena cava with a thrombus in the superior vena cava. The findings are very suspicious for a primary lung malignancy, given the appearance and his history, likely a squamous cell carcinoma. I discussed with the patient and his family the imaging results and the concern for malignancy. Discussed with them the various options for biopsy including a CT-guided needle biopsy versus a bronchoscopy with transbronchial biopsy. Given the increased risk of with general anesthesia and his acute pneumonia and hypoxemic respiratory failure, a CT-guided needle biopsy would have less risks at this time and still be sufficient for diagnosis. Therefore, would recommend a CT-guided needle biopsy of the right upper lobe mass. The patient is on Lovenox for his acute thrombus. Would continue with Lovenox and hold prior to his procedure. Patient with COPD exacerbation and hypoxemic respiratory failure in the setting of pneumonia. His VBG did show some hypercapnia as well. Would repeat an ABG and if there is any evidence of acute hypercarbic respiratory failure, would place the patient on BiPAP and follow-up repeat ABG Continue with antibiotics. Can continue with Levaquin as he is from the community and has no other risk factors for resistant organisms. Would check a sputum culture. Continue with DuoNebs. Would change them to be around the clock standing. Continue with Solu-Medrol 40 mg q. 12 for his COPD exacerbation. Continue with oxygen supplementation. The patient is on 50% VentiMask, would wean down to nasal cannula if tolerated to maintain an O2 sat above 88%. The patient did have some elevated BNP on admission. He does not have any evidence of significant pulmonary vascular congestion on exam and his right trace effusion is likely in the setting of pneumonia on that side. Would follow up the echo and will give gentle IV hydration given his sepsis. The patient has complaint of some new right hip pain and weakness. Will get an x-ray of his hip for evaluation. CODE STATUS: I discussed with the patient about goals of care and confirmed that he is a DO NOT RESUSCITATE and DO NOT INTUBATE, and Medical Order for Life-Sustaining Treatment (MOLST) was filled out and placed in the chart. MARANDA
--- NOTE | 2018-12-29 15:00 | REP ---
Clinical: Right hip pain. Technique: Portable AP view of the right hip. Findings: Moderate osteopenia and arthritic degenerative changes include joint space narrowing and marginal spurring at the acetabular rim. No obvious acute fracture dislocation identified. Impression: Moderate osteoarthritic degenerative changes. No obvious acute fracture or dislocation. Electronically Signed by Jose Appiah MD 12/29/2018 02:51 P
[2018-12-29 16:10] LABS: ABG BASE EXCESS 6.5 (-2.0-2.0); ABG HCO3 34.4 MEQ/L (22.0-26.0); ABG O2 SATURATION 97.1 % (95.0-99.0); ABG PARTIAL PRESSURE O2 91.1 mmHg (75.0-100.0); ABG STANDARD HCO3 30.3 MEQ/L (22.0-26.0); ABG TOTAL CO2 36.4 MEQ/L (23.0-31.0); ABG pH (ARTERIAL) 7.335 UNITS (7.350-7.450)
[2018-12-29 16:14] LABS: ABG PARTIAL PRESSURE CO2 65.9 mmHg (35.0-45.0)
[2018-12-29 20:34] LABS: ABG BASE EXCESS 7.7 (-2.0-2.0); ABG HCO3 32.8 MEQ/L (22.0-26.0); ABG O2 SATURATION 95.8 % (95.0-99.0); ABG PARTIAL PRESSURE CO2 47.9 mmHg (35.0-45.0); ABG PARTIAL PRESSURE O2 72.7 mmHg (75.0-100.0); ABG STANDARD HCO3 31.5 MEQ/L (22.0-26.0); ABG TOTAL CO2 34.2 MEQ/L (23.0-31.0); ABG pH (ARTERIAL) 7.453 UNITS (7.350-7.450)
[2018-12-30] VITALS (18 sets, daily range): BP systolic 102–131; BP diastolic 65–93; O2SAT 95–98
[2018-12-30] MEDS: IPRATROPIUM 0.5MG/ALBUTEROL 2.5MG INH SOL UD 3ML (DUONEB)(J7620) NEB SCH ×6 (00:08→21:06)
[2018-12-30] MEDS: D5W/0.45% SODIUM CHLORIDE 1,000 ML IV SCH (04:05)
[2018-12-30 04:29] LABS: HEMATOCRIT 39.3 % (42.0-52.0); HEMOGLOBIN 11.8 g/dl (13.5-17.5); MEAN CORPUSCULAR HEMOGLOBIN 28.2 pg (27.0-33.0); PLATELET COUNT, AUTOMATED 214 10^3/uL (150-450); RED BLOOD COUNT 4.18 10^6/uL (4.30-6.10); WHITE BLOOD COUNT 7.5 10^3/uL (4.0-10.0)
[2018-12-30 05:05] LABS: BLOOD UREA NITROGEN 21 MG/DL (7-18); CALCIUM LEVEL 8.1 MG/DL (8.8-10.2); CARBON DIOXIDE LEVEL 34 MEQ/L (21-32); CHLORIDE LEVEL 100 MEQ/L (98-107); CREATININE FOR GFR 0.86 MG/DL (0.70-1.30); GLOMERULAR FILTRATION RATE > 60.0 (>42); GLUCOSE, FASTING 135 MG/DL (70-100); POTASSIUM SERUM 4.1 MEQ/L (3.5-5.1); SODIUM LEVEL 140 MEQ/L (136-145)
[2018-12-30] MEDS: methylPREDNISolone INJ 40 MG/1 ML VIAL (J2920) IV SCH ×2 (06:24→17:29)
[2018-12-30] MEDS: ENOXAPARIN 100MG/1ML SYRINGE (J1650) SC SCH ×2 (09:21→20:12)
[2018-12-30] MEDS ORDERED: METOPROLOL TART 25 MG TABLET PO ONE (10:00)
--- NOTE | 2018-12-30 13:33 | IPNPDOC ---
Date Seen The patient was seen on 12/30/18. Progress Note SUBJECTIVE: SUBJECTIVE: Patient is a 73 yo male who was admitted for large lung mass and sob. He was placed on BIPAP yesterday evening and taken off this morning. He is more alert and interaction and said he is feeling better compared to yesterday. He continues to have productive cough. He denied fever, chills, chest pain, nausea , vomiting, diarrhea. OBJECTIVE Physical exam Gen: NAD, chronically ill, vital signs stable - mild tachycardia with aflutter (new since yesterday) HEENT: normocephalic, atraumatic, no discharge from ears or nose, no oropharyngeal erythema or exudate, neck is supple, no lymphadenopathy, trachea midline CVS: RRR, normal S1n S2, no murmur, rubs, or gallops, no edema, no jvd Resp: diffuse rhonchi throughout, with scattered wheezes, productive cough Abd : soft nontender, normal bowel sounds, no rebound tenderness or guarding MSK: no swelling, generalized weakness, decreased range of motion, but moves all extremities Neuro: AOAx2, no confusion, no focal deficit Psych: normal mood and affect, LABORATORY DATA, IMAGING STUDIES, MICROBIOLOGY: Please see below. - reviewed Echocardiogram: [pending]. DVT prophylaxis ordered?: [y] ASSESSMENT AND PLAN: 1. RUL mass/. and ? thrombos -Lovenox 1mg/kg Q12H -Continuous oxygen therapy +/- BiPaP if needed overnight -surgery consulted -plan for biopsy on Tuesday - I tried contacting IR to confirm, but was not successful 2. Shortness of breath -DuoNebs Q2H PRN -c/w methylpred 40mg q12h -Continuous Oxygen therapy and titration for saturation 88-92% -VBG demonstrates CO2 retention; likely chronic -mental status stable, bipap at night -abg prn -Pulm following - consult appreciated 3. Possible fluid overload: patient has peripheral edema and occasional wet cough; family reports peripheral edema is worse than usual -Will be cautious with fluid resuscitation for now -BNP 1714 -f/u echo Aflutter new onset since yesterday metoprol 25,mg q6h DVT ppx: On Lovenox CODE STATUS: DNR/DNI DISPOSITION: pending clinical improvement and IR guided CT biopsy - hold lovenox Tuesday night for biopsy tuesday VS, I&O, 24H, Francesca Vital Signs/I&O Vital Signs Date Time Temp Pulse Resp B/P (MAP) Pulse Ox O2 Delivery O2 Flow Rate FiO2 12/30/18 09:21 111 115/68 12/30/18 07:51 40 12/30/18 06:00 98 12/30/18 04:10 BIPAP/CPAP 12/30/18 04:00 98.7 18 12/29/18 08:00 6.0 I&O- Last 24 Hours up to 6 AM 12/30/18 06:00 Intake Total 1735 ml Output Total 750 ml Balance 985 ml Laboratory Data 24H LABS Laboratory Tests 2 12/29/18 16:00: Blood Gas Bicarbonate Standard 30.3H, Arterial Blood pH 7.335L, Arterial Blood Partial Pressure CO2 65.9*H, Arterial Blood Partial Pressure O2 91.1, Arterial Blood Total CO2 36.4H, Arterial Blood HCO3 34.4H, Arterial Blood Base Excess 6.5H, Arterial Blood Oxygen Saturation 97.1 12/29/18 20:28: Blood Gas Bicarbonate Standard 31.5H, Arterial Blood pH 7.453H, Arterial Blood Partial Pressure CO2 47.9H, Arterial Blood Partial Pressure O2 72.7L, Arterial Blood Total CO2 34.2H, Arterial Blood HCO3 32.8H, Arterial Blood Base Excess 7.7H, Arterial Blood Oxygen Saturation 95.8 12/30/18 04:11: Nucleated Red Blood Cells % (auto) 0.0, Anion Gap 6L, Glomerular Filtration Rate > 60.0, Blood Urea Nitrogen 21H, Creatinine 0.86, Sodium Level 140, Potassium Level 4.1, Chloride Level 100, Carbon Dioxide Level 34H, Calcium Level 8.1L, Magnesium Level 2.0 CBC/BMP Laboratory Tests 12/30/18 04:11 Red Blood Count 4.18 L, Mean Corpuscular Volume 94.0, Mean Corpuscular Hemoglobin 28.2, Mean Corpuscular Hemoglobin Concent 30.0 L, Red Cell Distribution Width 14.3, Calcium Level 8.1 L Microbiology Microbiology 12/28/18 Blood Culture - Preliminary, Resulted No growth after 24 hours . All specim... 12/28/18 Blood Culture - Preliminary, Resulted No growth after 24 hours . All specim... 12/29/18 Gram Stain - Final, Resulted 4/5/19 Sputum Culture, Resulted Pending BRIGIDO EPPS MD Dec 30, 2018 13:33
--- NOTE | 2018-12-30 13:49 | CCN ---
DATE: 12/30/2018 Patient was seen and examined this morning during bedside rounds. He was on bilevel positive airway pressure (BiPAP) overnight, and this morning he reports his breathing has improved. He has also noted some improvement in his cough as well. He denies any chest pain. Has not noticed any significant wheezing. He had no fevers or chills overnight. He denied any abdominal pain. No nausea or vomiting. PHYSICAL EXAMINATION: Temperature is 98.7, pulse 99, respiration 18, blood pressure 103/72, oxygen saturation 98% on 40% FiO2. General: The patient is frail-appearing, is sitting in bed, alert and oriented, and responding appropriately. He does not appear to be any acute distress at this time. HEENT: Normocephalic and atraumatic. Has various seborrheic keratoses on his face and scalp. Mucous membranes are moist. Neck is supple. No palpable cervical adenopathy. Left thyroid appears to be palpated slightly larger than the right. Trachea is midline. Cardiovascular: Regular rate and rhythm. Normal S1 and S2. Unable to appreciate any murmurs on exam. Point of maximum impulse (PMI) is displaced laterally. Lungs: Diminished breath sounds bilaterally with rhonchi bilaterally in the lower lobes and occasional crackles. Abdomen is soft, nontender, nondistended. Extremities: There is no lower extremity edema bilaterally. IMAGING: Right hip x-ray did not show any acute fractures. There are osteoarthritic changes noted. ASSESSMENT AND PLAN: The patient is a 73-year-old male with no previously known medical history, had not followed up with primary doctor in many years, history of heavy smoking and pulmonary nodules in the past, who was lost to followup. Presented with complaints of increasing shortness of breath, fatigue and weakness as well as with some subjective chills. The patient was found to have sepsis likely secondary to pneumonia as well as with acute hypoxemic and likely acute on chronic hypercarbic respiratory failure secondary to chronic obstructive pulmonary disease (COPD) exacerbation and pneumonia. He was also found on imaging to have a right upper lobe mass with some compression and possible extension into his superior vena cava with a thrombus in the superior vena cava. Continue with antibiotics for his pneumonia in the right lower lobe. Continue with Levaquin and followup a sputum culture and followup blood cultures. The patient can be off BiPAP during the day and would place him onto BiPAP at night or when sleeping. Patient can be on tabletop BiPAP with settings of 12/6 at 40% FiO2 for a goal oxygen saturation of 88-92%. The patient can be on regular tabletop BiPAP at night. Continue with nasal cannula oxygen supplementation while off of BiPAP with a goal oxygen saturation of 88-92% Continue with Solu-Medrol 40 mg every 12 for COPD exacerbation. Can likely decrease to prednisone tomorrow. Continue with DuoNebs [id number]. Would start chest PT for pulmonary toilet and mucus clearance. Continue with anticoagulation with Lovenox for his acute venous thrombus. The patient is ordered for a CT-guided biopsy of his right upper lobe mass. Would need to hold anticoagulation prior to procedure and make the patient nothing by mouth prior to procedure as well. The patient had new onset atrial fibrillation during this admission. He has been tachycardic overnight. Was persistently noted to have a heart rate in the 110s. Therefore, would start him on a beta-ann marie for rate control. Will followup his echo. Will discontinue IV fluids and encourage oral intake. CODE STATUS: DO NOT RESUSCITATE, DO NOT INTUBATE. MTDD
--- NOTE | 2018-12-30 14:14 | ECHO ---
DATE OF PROCEDURE: 12/29/2018 DATE OF : 1945 AGE: 73 GENDER: Male HEIGHT: 73 inches WEIGHT: 196 pounds BODY SURFACE AREA: 2.13 m2 INPATIENT: Progressive care unit (PCU) Room 3209 REFERRING PHYSICIAN: Dr. Carie Aguayo INDICATION: Dyspnea. MEASUREMENTS: 2-D Measurements: RV: 5.4 cm LV: 4.6 cm Septum: 1.2 cm Posterior wall: 1.2 cm Aortic root: 3.8 cm LA: 4.4 cm LVEF: 60% Doppler Measurements: AV: 1.38 m/s LVOT: 0.9 m/s LVOT diameter: 2.1 cm MV: E: 88, A: 67, EA ratio: 1.3 Early mitral deceleration time: 246 ms E prime: 7.1 A prime: 9.1 E/E prime ratio: 12.5 PCWP: 13.9 mmHg PV: 0.9 m/s Pulmonary artery acceleration time: 60 ms RVSP: 57 mmHg IVC: 2.6 cm COMMENTS: Normal sinus rhythm without intraventricular conduction disturbance. Occasional PVCs. Somewhat technically challenging study in light of the patient's body habitus but diagnostically useful information was still obtained. M-mode and two-dimensional echocardiography was performed with pulsed, continuous wave, color flow, and tissue Doppler studies. Normal left ventricular size with borderline concentric hypertrophy. Septal wall motion abnormality due to right ventricular pressure overload yet preserved global resting left ventricular systolic function. Mildly dilated left atrium with evidence of LV diastolic dysfunction but current estimated mean left atrial pressure upper limits of normal. Moderately dilated right heart chambers with slightly reduced right ventricular free wall motion and Doppler evidence of at least moderately severe pulmonary hypertension. Moderately dilated IVC with reduced respiratory collapse in keeping with elevated central venous pressure/heart failure. Normal appearing aortic valve and function. Borderline dilated aortic root. Mild thickening of the mitral valvular apparatus without inflow tract obstruction and only mild insufficiency. Normal appearing tricuspid valve with moderate insufficiency. No apparent intracardiac mass. Minuscule posterior pericardial effusion. MTDD
[2018-12-30] MEDS ORDERED: METOPROLOL TART 25 MG TABLET PO SCH (15:00)
[2018-12-30] MEDS ORDERED: METOPROLOL TART 25 MG TABLET PO STA (18:07)
[2018-12-30] MEDS: METOPROLOL TART 50 MG TAB PO SCH (20:12)
[2018-12-30] MEDS: LevoFLOXacin IV 750 MG in APPROPRIATE DILUENT 1 EA IV SCH (22:18)
[2018-12-31] VITALS: BP 126/80
[2018-12-31 00:38] VITALS: O2SAT 95
[2018-12-31] MEDS: IPRATROPIUM 0.5MG/ALBUTEROL 2.5MG INH SOL UD 3ML (DUONEB)(J7620) NEB SCH ×6 (00:38→20:28)
[2018-12-31 04:00] VITALS: BP 134/79
[2018-12-31] MEDS: METOPROLOL TART 50 MG TAB PO SCH ×4 (04:01→20:12)
[2018-12-31 04:28] VITALS: O2SAT 94
[2018-12-31 04:36] LABS: HEMATOCRIT 41.4 % (42.0-52.0); HEMOGLOBIN 12.7 g/dl (13.5-17.5); MEAN CORPUSCULAR HEMOGLOBIN 28.9 pg (27.0-33.0); MEAN CORPUSCULAR HGB CONC 30.7 g/dl (32.0-36.5); MEAN CORPUSCULAR VOLUME 94.1 fl (80.0-96.0); PLATELET COUNT, AUTOMATED 232 10^3/uL (150-450); WHITE BLOOD COUNT 8.2 10^3/uL (4.0-10.0)
[2018-12-31 04:58] LABS: BLOOD UREA NITROGEN 22 MG/DL (7-18); CALCIUM LEVEL 8.7 MG/DL (8.8-10.2); CARBON DIOXIDE LEVEL 34 MEQ/L (21-32); CHLORIDE LEVEL 100 MEQ/L (98-107); CREATININE FOR GFR 0.92 MG/DL (0.70-1.30); GLOMERULAR FILTRATION RATE > 60.0 (>42); GLUCOSE, FASTING 96 MG/DL (70-100); MAGNESIUM LEVEL 2.1 MG/DL (1.8-2.4); PHOSPHORUS LEVEL 3.4 MG/DL (2.5-4.9); POTASSIUM SERUM 4.3 MEQ/L (3.5-5.1); SODIUM LEVEL 138 MEQ/L (136-145)
[2018-12-31 06:00] VITALS: BP 118/72
[2018-12-31] MEDS: methylPREDNISolone INJ 40 MG/1 ML VIAL (J2920) IV SCH ×2 (06:19→17:54)
[2018-12-31] MEDS: ENOXAPARIN 100MG/1ML SYRINGE (J1650) SC SCH ×2 (08:29→20:12)
--- NOTE | 2018-12-31 12:56 | REP ---
Clinical: Hypoxemia . Comparison: 12/28/2018 . Findings: Right perihilar mass and suspected adenopathy along with diffuse chronic interstitial changes remain stable. New small to moderate right pleural effusion identified. No pneumothorax. Skeletal structures stable. Impression: New small to moderate right pleural effusion. Electronically Signed by Jose Appiah MD 12/31/2018 12:47 P
--- NOTE | 2018-12-31 13:24 | IPN ---
DATE: 12/31/2018 PULMONARY PROGRESS NOTE: Patient was seen and examined this morning during bedside rounds. Patient was on bilevel positive airway pressure (BiPAP) overnight. However, he had not slept for most of the night and was off BiPAP very early this morning. He was placed on nasal cannula oxygen supplementation and initially had been tolerating well and saturating well on 2 liters nasal cannula. However, he did desaturate and require increasing nasal cannula oxygen supplementation up to 3-4 liters. Patient did become drowsy then and he was placed back on BiPAP while he was sleeping as with napping on the nasal cannula oxygen he did desaturate further. Earlier, he reported that his breathing had improved. He does have some shortness of breath still and an occasional cough, although has not been productive much. He denied any increased wheezing. No chest pains. He had no fevers or chills. He had no abdominal pain. No nausea or vomiting. PHYSICAL EXAMINATION: Temperature 99, pulse 99, respirations 20, blood pressure 118/72, oxygen saturation 94% on 2 liters nasal cannula. Repeat oxygen saturation 88% on 3 liters nasal cannula. Ins was 2.3, outs was 1.1 liters. General: Patient is frail-appearing, lying in bed, is alert and oriented, however does appear confused at times. He is able to converse in complete sentences and does not appear to be in any acute distress at this time. HEENT: Normocephalic, atraumatic. Has various seborrheic keratoses and moles on his face and scalp. Mucous membranes are moist. Neck is supple. No palpable cervical adenopathy. + JVD. Cardiovascular: Irregularly irregular. Normal S1, S2. Unable to appreciate any murmurs. Point of maximum impulse (PMI) is displaced laterally. Lungs: Decreased breath sounds bilaterally with occasional crackles and few rhonchi in the bases. Abdomen is soft, nontender, nondistended. Extremities: There is no lower extremity edema noted bilaterally. Right upper extremity with some increased swelling compared to left. LABORATORIES: WBC 8.2, hemoglobin 12.7, platelets 232. Chemistry: Sodium 138, potassium 4.3, chloride 100, bicarbonate 34, BUN 22, creatinine 0.92, glucose 96. IMAGING: Echo showed normal ejection fraction (EF) with borderline concentric hypertrophy. Mildly dilated left atrium and evidence of left ventricular (LV) diastolic dysfunction. Mildly dilated right heart chambers with slightly reduced right ventricular (RV) free wall motion and moderately-severe pulmonary hypertension. RV systolic pressure estimated at 57 mmHg. Mildly dilated inferior vena cava (IVC) with reduced respiratory collapse consistent with increase central venous pressure (CVP). Mild mitral valve insufficiency. Very miniscule posterior pericardial effusion. ASSESSMENT AND PLAN: Patient is a 73-year-old male with no previously known medical history, history of heavy smoking and previous pulmonary nodules, who had been lost followup. He presented with complaints of increasing shortness of breath, fatigue, weakness, and chills. Patient was found to have sepsis likely secondary to pneumonia as well as acute hypoxemic and likely acute on chronic hypercarbic respiratory failure secondary to chronic obstructive pulmonary disease (COPD) exacerbation and pneumonia. 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 Patient's ABGs have improved on BiPAP. Patient was placed on tabletop BiPAP overnight with a setting of 12/6 and FiO2 of 40%, which he tolerated. Would continue with BiPAP at night and while napping. Patient may require BiPAP upon discharge given his COPD and chronic hypercarbic respiratory failure. Continue with antibiotics with Levaquin and followup sputum culture and blood culture results. Continue with anticoagulation with Lovenox for his acute venous thrombus. He was noted to have some increased swelling in RUE this morning. Patient is at risk for SVC syndrome with acute thrombus in SVC. No facial edema or neck swelling Will cont to monitor and continue anticoagulation. He may require in-patient radiation after his CT guided biopsy. The patient had new onset atrial fibrillation and was started on beta-ann marie yesterday with some improvement in his heart rate. Will continue beta-ann marie and titrate up for improved rate control. Patient did have echo, which showed evidence of some reduced RV function and a mildly dilated RV with evidence of moderately severe pulmonary hypertension and a dilated IVC with evidence of increased CVP. He did have increased brain natriuretic peptide (BNP) on admission and patient has been net positive. Given his increasing oxygen requirements, will repeat CXR and if evidence of increased PVC or fluid overload would give patient a dose of Lasix if his blood pressure tolerates. Will followup with cardiology recommendations. Continue with DuoNebs and will change Solu-Medrol to prednisone 40 mg daily. Continue with chest PT for pulmonary toilet. Patient is planned for a CT-guided biopsy of his right upper lobe mass tomorrow. Will followup results of his biopsy. CODE STATUS: DO NOT RESUSCITATE, DO NOT INTUBATE. MTDD
[2018-12-31] MEDS ORDERED: FUROSEMIDE 40 MG/4 ML VIAL (J1940) IV ONE (14:00)
--- NOTE | 2018-12-31 16:37 | ECGEPIP ---
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
--- NOTE | 2018-12-31 16:51 | IPNPDOC ---
Date Seen The patient was seen on 12/31/18. Progress Note SUBJECTIVE: Patient is a 73 yo male who was admitted for large lung mass and sob. Patient was found to have sepsis likely secondary to pneumonia as well as acute hypoxemic and likely acute on chronic hypercarbic respiratory failure secondary to chronic obstructive pulmonary disease (COPD) exacerbation and pneumonia. 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 He was placed on bipap which helped his combined resp failure. He was also placed on lovenox and given broad spectrum abx. He is clinically improved, but the nurses said he seems confused this morning. He denied any complaint today, no acutely delirious. He denied fever, chills, chest pain, nausea , vomiting, diarrhea. OBJECTIVE Physical exam Gen: NAD, chronically ill, but clinically improved HEENT: normocephalic, atraumatic, no discharge from ears or nose, no oropharyngeal erythema or exudate, neck is supple, no lymphadenopathy, trachea midline CVS: irreg rhythm, rate is better controlled, normal S1n S2, no murmur, rubs, or gallops, no edema, no jvd Resp: scattered wheezes, much less rhonchi, productive cough improved Abd : soft nontender, normal bowel sounds, no rebound tenderness or guarding MSK: no swelling, generalized weakness, decreased range of motion, but moves all extremities Neuro: AOAx2, no confusion, no focal deficit Psych: normal mood and affect, LABORATORY DATA, IMAGING STUDIES, MICROBIOLOGY: Please see below. - reviewed Echocardiogram: IMAGING: Echo showed normal ejection fraction (EF) with borderline concentric hypertrophy. Mildly dilated left atrium and evidence of left ventricular (LV) diastolic dysfunction. Mildly dilated right heart chambers with slightly reduced right ventricular (RV) free wall motion and moderately-severe pulmonary hypertension. RV systolic pressure estimated at 57 mmHg. Mildly dilated inferior vena cava (IVC) with reduced respiratory collapse consistent with increase central venous pressure (CVP). Mild mitral valve insufficiency. Very miniscule posterior pericardial effusion. DVT prophylaxis ordered?: [y] ASSESSMENT AND PLAN: 1. RUL mass/. and ? thrombus -Lovenox 1mg/kg Q12H - hold after midnight for CT guided biopsy in the morning -Continuous oxygen therapy +/- BiPaP as needed overnight -surgery consulted -npo after midnight 2. Shortness of breath- hypoxic and hypercapnic resp failure - improved - 2/2 COPD exacerbation, PNA and lung mass -DuoNebs Q2H PRN -c/w methylpred 40mg q12h -Continuous Oxygen therapy and titration for saturation 88-92% -bipap at night -Pulm following - consult appreciated -downgraded to pcu with tele 3. 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 Guadalupe consulted DVT ppx: On Lovenox CODE STATUS: DNR/DNI DISPOSITION: pending clinical improvement and IR guided CT biopsy - hold lovenox tonight for biopsy tuesday VS, I&O, 24H, Fishbone Vital Signs/I&O Vital Signs Date Time Temp Pulse Resp B/P (MAP) Pulse Ox O2 Delivery O2 Flow Rate FiO2 12/31/18 16:00 3.0 12/31/18 15:51 103 127/64 12/31/18 12:00 98.1 12 92 12/31/18 04:28 BIPAP/CPAP 12/30/18 08:00 40 l I&O- Last 24 Hours up to 6 AM 12/31/18 06:00 Intake Total 1975 ml Output Total 1350 ml Balance 625 ml Laboratory Data 24H LABS Laboratory Tests 2 12/31/18 04:22: Nucleated Red Blood Cells % (auto) 0.0, Anion Gap 4L, Glomerular Filtration Rate > 60.0, Blood Urea Nitrogen 22H, Creatinine 0.92, Sodium Level 138, Potassium Level 4.3, Chloride Level 100, Carbon Dioxide Level 34H, Calcium Level 8.7L, Phosphorus Level 3.4, Magnesium Level 2.1 CBC/BMP Laboratory Tests 12/31/18 04:22 Red Blood Count 4.40, Mean Corpuscular Volume 94.1, Mean Corpuscular Hemoglobin 28.9, Mean Corpuscular Hemoglobin Concent 30.7 L, Red Cell Distribution Width 14.4, Calcium Level 8.7 L Microbiology Microbiology 12/28/18 Blood Culture - Preliminary, Resulted No Growth after 48 hours. All Specime... 12/28/18 Blood Culture - Preliminary, Resulted No Growth after 48 hours. All Specime... 12/29/18 Gram Stain - Final, Resulted 12/29/18 Sputum Culture - Preliminary, Resulted Moraxella Catarrhalis Yeast Like Organism BRIGIDO EPPS MD Dec 31, 2018 16:51
--- NOTE | 2018-12-31 17:55 | CR ---
DATE OF CONSULTATION: 12/31/2018 REFERRING PHYSICIAN: Dr. Carie Aguayo INDICATION: Atrial fibrillation. HISTORY OF PRESENT ILLNESS: Mr. Bliss is previously unknown to me. He is a 73-year-old man who presented to [facility] on December 28 for a several week history of gradually progressing shortness of breath and weakness. On initial presentation, he was found to have a mass that was encroaching on the superior vena cava. He also was felt to have pneumonia and was treated as such. During his hospitalization, he was in respiratory failure with hypercapnia and hypoxemia. He clinically improved, but during this hospitalization developed atrial fibrillation with rapid ventricular response. Currently is reasonably well-controlled on metoprolol 50 mg every 6 hours. His heart rate is typically around 90 to 105 beats per minute. He is anticoagulated with Lovenox. I am being asked to assist in further management of his atrial fibrillation. PAST MEDICAL HISTORY: Patient has not seen a physician for probably 2 to 3 years. He looks like he never had any consistent healthcare but at some point he was seen by Dr. Villegas, but he has not seen him in probably 2 to 3 years. OUTPATIENT MEDICATIONS: None. ALLERGIES: None. SOCIAL HISTORY: The patient is a lifelong smoker, sometimes smokes as much as two packs a day. He is recently , his recently from chronic obstructive pulmonary disease (COPD). FAMILY HISTORY: His father had a stroke. He does not recall any first-degree relatives with coronary artery disease. REVIEW OF SYSTEMS: He denies any shelby fever or chills. He denies any significant changes in his weight. No hemoptysis but he has had chronic cough that was worse for the last few weeks prior to this admission. No chest pain. No sensation of palpitations. He does not recall any prior history of cardiac problems. No peripheral edema. No syncope. No genitourinary symptoms. No history of bleeding. PHYSICAL EXAMINATION: Mr. Bliss is a 73-year-old man who appears probably older than his calendar age, does not appear to be in any distress. He is able to speak in full sentences with oxygen by nasal cannula. The last set of vital signs: Blood pressure 116/68, heart rate has been between 90s to 100 and teens. Saturation is 92% on 3 liters of oxygen by nasal cannula. Fluid balance yesterday was positive 500, he is about 700 negative today. Documented weight is 89.5 kg, which has not appreciably changed since his admission. His jugular venous pressure appears mildly elevated but it fluctuates markedly with respiration. There are increased veins on the right side of his chest, likely corresponding to thrombus or partial compression of superior vena cava. Lungs are otherwise relatively clear even though he has occasional crackle and slight wheezes but air movement seems good. Heart exam reveals very muffled heart sounds. I do not appreciate any gallop, rub or murmur. Abdomen is soft without tenderness. No obvious hepatosplenomegaly. He does not have peripheral edema. Peripheral pulses are detectable. Neurologically, he is intact. LABORATORY DATA Basic metabolic panel as of today: Sodium 138, potassium 4.3, BUN 22, creatinine 0.9 and glucose 96. On admission, terminal pro BNP was 1700 and his troponin was 0.03. Liver function tests are normal. Complete blood count (CBC): Hemoglobin 12.7, hematocrit 41, platelet count 232,000. ECG on admission reveals sinus rhythm with premature ventricular contractions (PVCs). The underlying QRS morphology is relatively normal with at least significant repolarization abnormalities. He had a CT angiography of the chest that revealed a right upper lobe mass encroaching of superior vena cava. There was also thrombus in the superior vena cava, otherwise consistent with COPD. No pleural effusions. Surprisingly, he did have a chest x-ray earlier today that does demonstrate right-sided pleural effusion, which is new compared to 3 days ago. ASSESSMENT/PLAN Mr. Bliss a 73-year-old man who undoubtedly has advanced COPD in view of heavy smoking for approximately 50 years plus. He also has right upper lobe mass encroaching on superior vena cava. There is a tentative plan to perform CT-guided biopsy tomorrow. As far as his cardiac issue is concerned, it is probably not surprising that he developed atrial fibrillation in his current condition. I do foresee the chronic plan for rate control and anticoagulation. He does have a secondary indication for anticoagulation in the presence of supraventricular thrombosis. After the biopsy is performed and the treatment plan for his cancer is established, the determination will have to be made about what kind of chronic anticoagulation to utilize. I do expect that he will end up on probably Eliquis or Xarelto. As far as the rate control is concerned, it is still imperfect. He seemed to be tolerating beta-blockers well, and I think that it is reasonable to continue chronic metoprolol, even though his heart rate is not perfect considering his underlying COPD and increased work of breathing. I am satisfied with heart rate around 100 beats per minute as long as it does not get any worse. If needs to be, we can add a second agent, my choice would probably be digoxin. He does have preserved left ventricular systolic function but evidence for dilated right sided heart chambers and at least moderately severe pulmonary hypertension, which is another factor in this presentation. Unfortunately, overall the patient's prognosis is poor. It will be, in my opinion, principally determined by the nature of his lung mass and it's further course of treatment. I am particularly worried about the relatively recent development of pleural effusion.
[2018-12-31 20:00] VITALS: BP 120/80
[2018-12-31] MEDS: LevoFLOXacin IV 750 MG in APPROPRIATE DILUENT 1 EA IV SCH (23:23)
[2019-01-01] VITALS (13 sets, daily range): BP systolic 95–134; BP diastolic 73–89; O2SAT 96
[2019-01-01] MEDS: IPRATROPIUM 0.5MG/ALBUTEROL 2.5MG INH SOL UD 3ML (DUONEB)(J7620) NEB SCH ×6 (00:31→20:58)
[2019-01-01] MEDS: METOPROLOL TART 50 MG TAB PO SCH ×4 (03:52→21:14)
[2019-01-01 05:32] LABS: HEMATOCRIT 40.4 % (42.0-52.0); HEMOGLOBIN 12.6 g/dl (13.5-17.5); MEAN CORPUSCULAR HEMOGLOBIN 29.2 pg (27.0-33.0); MEAN CORPUSCULAR HGB CONC 31.2 g/dl (32.0-36.5); MEAN CORPUSCULAR VOLUME 93.7 fl (80.0-96.0); PLATELET COUNT, AUTOMATED 221 10^3/uL (150-450); RED BLOOD COUNT 4.31 10^6/uL (4.30-6.10); WHITE BLOOD COUNT 7.1 10^3/uL (4.0-10.0)
[2019-01-01 05:45] LABS: INR 1.12; PROTHROMBIN TIME 14.6 SECONDS (12.1-14.4)
[2019-01-01 05:46] LABS: PARTIAL THROMBOPLASTIN TIME 38.6 SECONDS (25.4-37.6)
[2019-01-01 06:01] LABS: BLOOD UREA NITROGEN 25 MG/DL (7-18); CALCIUM LEVEL 8.4 MG/DL (8.8-10.2); CARBON DIOXIDE LEVEL 37 MEQ/L (21-32); CHLORIDE LEVEL 99 MEQ/L (98-107); CREATININE FOR GFR 0.84 MG/DL (0.70-1.30); GLOMERULAR FILTRATION RATE > 60.0 (>42); GLUCOSE, FASTING 94 MG/DL (70-100); MAGNESIUM LEVEL 2.2 MG/DL (1.8-2.4); PHOSPHORUS LEVEL 4.1 MG/DL (2.5-4.9); POTASSIUM SERUM 4.4 MEQ/L (3.5-5.1); SODIUM LEVEL 140 MEQ/L (136-145)
--- NOTE | 2019-01-01 08:12 | IPN ---
DATE OF SERVICE: 01/01/2019 Mr. Bliss had a pretty good day yesterday. He #1 converted into sinus rhythm which I think is the most important clinical change. Also after he received diuretics yesterday morning he had excellent diuretic response and his output for the day was over 3 liters for negative balance approximately 2 liters. He tells me that it feels much better this morning. He is awaiting biopsy of his right upper lobe mass. Vital signs: Blood pressure 117/73, heart rate has been in 90s. Saturation 91-94% on 3 liters of oxygen. Weight is 87.6 kg. He is alert and oriented, appropriate. His JVP is very high at least 7-8 cm above clavicle in sitting position. There are relatively clear lungs bilaterally. I do not appreciate any wheezing or crackles. Heart exam reveals regular rhythm. No gallop. Abdomen is soft. There is no peripheral edema. LABORATORY: Basic metabolic panel is normal. CBC reveals hemoglobin 12.7, hematocrit 40.4, platelet count 221,000. ASSESSMENT/PLAN: Mr. Bliss is a 73-year-old man who came with respiratory failure likely as a consequence of underlying COPD and superimposed respiratory infection and he was also found to have a mass compressing the superior vena cava. From respiratory perspective, his condition was further complicated by development of atrial fibrillation that was reasonably well-controlled on metoprolol 50 four times a day. He was anticoagulated with Lovenox. Today he is supposed to have a biopsy of right upper lobe mass and after that is accomplished, I hope that we can restart anticoagulation tonight or tomorrow morning. From cardiac perspective, I will continue same management for the atrial fibrillation. He will need chronic anticoagulation. The other issue is that of right-sided congestive heart failure. It is very likely consequence of underlying COPD and potentially suspected sleep apnea. We will use as needed diuretics to control symptoms of right-sided heart failure.
[2019-01-01] MEDS ORDERED: methylPREDNISolone INJ 40 MG/1 ML VIAL (J2920) IV SCH (09:00)
--- NOTE | 2019-01-01 10:18 | IPN ---
DATE: 01/01/2019 The patient was seen and examined this morning during rounds. He reports that he has been doing well with his breathing. He denies any increased shortness of breath or dyspnea on exertion currently. He has an occasional cough, however, that has improved. Yesterday the patient was noted to be desaturating while on nasal cannula oxygen supplementation and was requiring BiPAP during the day. At this morning he has been satting well on 3 liters of nasal cannula. He did use his BiPAP overnight. He did he did not have any fevers or chills. No chest pains. Of note, the patient was previously in atrial fibrillation, however, he appeared to have spontaneously converted into sinus rhythm this morning. PHYSICAL EXAMINATION: Temperature 98.3, pulse 86, respirations 20, blood pressure 121/78, O2 94% on 3 liters nasal cannula. Ins 1 liter, out 3 liters, net negative 2.1 liters. General: The patient is a frail-appearing elderly male lying in bed, is alert and oriented. He is not in any respiratory distress. He is able to converse in complete sentences. HEENT: Normocephalic, atraumatic. Has various seborrheic keratosis and moles on his face and scalp. Mucous membranes are moist. Neck is supple. No palpable cervical adenopathy. Cardiovascular is regular rate and rhythm. Normal S1-S2. Loud systolic murmur left border. PMI is displaced laterally. Lungs: Improved breath sounds bilaterally with occasional crackles at the bases. No significant wheezing or rhonchi. Abdomen is soft, nontender, nondistended. Positive bowel sounds. Extremities: There is no lower extremity edema noted bilaterally. Right upper extremity is mildly increased compared to the left. LABORATORY DATA: WBC 7.1, hemoglobin 12.6, platelets 221. Chemistries: Sodium is 148, potassium is 4.4, chloride 99, bicarb 37, BUN 25, creatinine 0.84, glucose is 94. Microbiology: Sputum cultures positive for Moraxella and yeast. ASSESSMENT/PLAN: The patient is a 73-year-old male with no previously known medical history except for a history of heavy smoking and previous pulmonary nodules which were lost to follow-up. Patient presented with increasing shortness of breath, fatigue, weakness and chills. The patient was found to have sepsis likely secondary to pneumonia as well as acute hypoxemic and acute on chronic hypercarbic respiratory failure likely secondary to COPD exacerbation. The patient was also noted to have a right upper lobe mass on imaging with some compression and possible extension into his superior vena cava with a thrombus noted there. Yesterday the patient was noted to have some increasing oxygen requirements. His chest x-ray showed a new small right pleural effusion and some mild pulmonary vascular congestion. He was given a dose of IV Lasix and had good diuresis. He appears to have improvement in his shortness of breath this morning and is on 3 liters nasal cannula and satting well. The patient does have evidence of some right heart failure with moderately severe pulmonary hypertension. Patient likely has pulmonary hypertension secondary to group three from previously undiagnosed COPD with likely chronic hypoxemic respiratory failure and hypercarbic respiratory failure. The patient will need further workup as an outpatient including a sleep study for possible obstructive sleep apnea. For now we will continue to monitor his ins and outs. Will hold off on diuresis except as needed. Will follow-up with cardiology recommendations. He is on a beta-ann marie for his new atrial fibrillation and he has spontaneously converted into sinus rhythm and appears to be rate controlled at this time. Continue with anticoagulation with Lovenox. Will continue to monitor closely for any acute SVC syndrome. He is planned for a CT-guided biopsy for his right upper lobe mass today and then would restart Lovenox postprocedure. The patient is on antibiotics for pneumonia. His sputum culture did grow Moraxella which will likely be was sensitive to Levaquin, however will need to follow-up the appropriate sensitivities. Will continue with Levaquin for a seven day course. Continue with DuoNebs and would change his Solu-Medrol to prednisone 40 mg p.o. with a slow taper. Continue with chest PT for pulmonary toilet. CODE STATUS: DO NOT RESUSCITATE/DO NOT INTUBATE. MTDD
[2019-01-01] MEDS ORDERED: LIDOCAINE 1% MDV 20ML VIAL As Ordered ONE (13:36)
--- NOTE | 2019-01-01 15:09 | REP ---
Single view chest x-ray: History: Status post CT guided needle biopsy right paramediastinal mass. Comparison study December 31, 2018. Findings: The right paratracheal swelling is again noted. There is blunting of the right lateral pleural angle and elevation of the right hemidiaphragm. There is no evidence of pneumothorax. Left lung is unchanged. Impression: No complication is seen. Electronically Signed by Marty Pichardo MD 01/01/2019 05:40 P
--- NOTE | 2019-01-01 16:17 | IPNPDOC ---
Date Seen The patient was seen on 01/01/19. Progress Note SUBJECTIVE: Patient is a 73 yo male who was admitted for large lung mass and sob. Patient was found to have sepsis likely secondary to pneumonia as well as acute hypoxemic and likely acute on chronic hypercarbic respiratory failure secondary to chronic obstructive pulmonary disease (COPD) exacerbation and pneumonia. 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 He was placed on bipap which helped his combined resp failure. In ER he was started on ceftriaxone and azithromycin which was changed to iv levaquin 12/28. Sputum cx grew moraxella catarhallis and haemophilus influenza both should sensitive to levaquin, will follow up for final result. He was also started on high dose IV methylprednisolone which is being tapered. Patient also developed with rvr on 12/30 and was started on metoprolol now on 50mg q6h with better rate control, and he was already on lovenox for the possible svc thrombus. Orthopedic Dentist, Dr. Guadalupe, was consulted on 12/31 and has been following since. Dr. Lieberman, pulm workforce development specialist, has also been integral in his management since 12/29. He is clinically improved, s/p lung mass biopsy today 01/01 which went well based on report. He denied any complaint today He denied fever, chills, chest pain, nausea , vomiting, diarrhea. OBJECTIVE Physical exam Gen: NAD, chronically ill, but clinically improved HEENT: normocephalic, atraumatic, no discharge from ears or nose, no oropharyngeal erythema or exudate, neck is supple, no lymphadenopathy, trachea midline CVS: irreg rhythm, rate is better controlled, normal S1n S2, no murmur, rubs, or gallops, no edema, no jvd Resp: scattered wheezes, much less rhonchi, productive cough improved Abd : soft nontender, normal bowel sounds, no rebound tenderness or guarding MSK: no swelling, generalized weakness, decreased range of motion, but moves all extremities Neuro: AOAx2, no confusion, no focal deficit Psych: normal mood and affect, LABORATORY DATA, IMAGING STUDIES, MICROBIOLOGY: Please see below. - reviewed Echocardiogram: IMAGING: Echo showed normal ejection fraction (EF) with borderline concentric hypertrophy. Mildly dilated left atrium and evidence of left ventricular (LV) diastolic dysfunction. Mildly dilated right heart chambers with slightly r educed right ventricular (RV) free wall motion and moderately-severe pulmonary hypertension. RV systolic pressure estimated at 57 mmHg. Mildly dilated inferior vena cava (IVC) with reduced respiratory collapse consistent with increase central venous pressure (CVP). Mild mitral valve insufficiency. Very miniscule posterior pericardial effusion. DVT prophylaxis ordered?: [y] ASSESSMENT AND PLAN: 1. RUL mass/. and ? thrombus -Lovenox 1mg/kg Q12H - -Continuous oxygen therapy +/- BiPaP as needed overnight -s/p biopsy today -f/u biopsy result 2. Shortness of breath- hypoxic and hypercapnic resp failure - improved - 2/2 COPD exacerbation, PNA and lung mass -DuoNebs Q4H STANDING and albuterol q2h prn, patient an likely be de-escalated to duoneb q4h prn, if pulm agrees -c/w methylpred 40mg DAILY -Continuous Oxygen therapy and titration for saturation 88-92% -bipap at night -Pulm following - consult appreciated -downgraded to pcu with telE -C/W LEVAQUIN DAY 01/30 3. Possible fluid overload: patient has peripheral edema - improved// pulm htn//cor pulmonale -BNP 1714 -on lasix as needed -echo shows - normal LV fxn, but RVSP OF 57 Aflutter//afib -new onset c/w metoprolol 50mg q6h On Lovenox see echo above duplicate maker -Dr. Guadalupe consulted DVT ppx: On Lovenox CODE STATUS: DNR/DNI DISPOSITION: s/p biopsy today, PT ORDERED. VS, I&O, 24H, Fishbone Vital Signs/I&O Vital Signs Date Time Temp Pulse Resp B/P (MAP) Pulse Ox O2 Delivery O2 Flow Rate FiO2 01/01/19 15:30 87 20 129/82 (98) 96 4.0 01/01/19 14:48 98.6 01/01/19 04:15 Nasal Cannula 12/30/18 08:00 40 I&O- Last 24 Hours up to 6 AM 01/01/19 06:00 Intake Total 1010 ml Output Total 3100 ml Balance -2090 ml Laboratory Data 24H LABS Laboratory Tests 2 01/01/19 04:38: Nucleated Red Blood Cells % (auto) 0.0, Prothrombin Time 14.6H, Prothromb Time International Ratio 1.12, Activated Partial Thromboplast Time 38.6H, Anion Gap 4L, Glomerular Filtration Rate > 60.0, Blood Urea Nitrogen 25H, Creatinine 0.84, Sodium Level 140, Potassium Level 4.4, Chloride Level 99, Carbon Dioxide Level 37H, Calcium Level 8.4L, Phosphorus Level 4.1#, Magnesium Level 2.2 CBC/BMP Laboratory Tests 01/01/19 04:38 Red Blood Count 4.31, Mean Corpuscular Volume 93.7, Mean Corpuscular Hemoglobin 29.2, Mean Corpuscular Hemoglobin Concent 31.2 L, Red Cell Distribution Width 14.4, Calcium Level 8.4 L Microbiology Microbiology 12/28/18 Blood Culture - Preliminary, Resulted No Growth after 72 hours. All specime... 12/28/18 Blood Culture - Preliminary, Resulted No Growth after 72 hours. All specime... 12/29/18 Gram Stain - Final, Complete 12/29/18 Sputum Culture - Final, Complete Moraxella Catarrhalis Haemophilus Influenzae Yeast Like Organism BRIGIDO EPPS MD Jan 01, 2019 16:17
[2019-01-01] MEDS ORDERED: SLF 3 ML SYR IV PRN (18:30)
[2019-01-01] MEDS: predniSONE 20 MG TAB PO SCH (18:40)
[2019-01-01] MEDS: SLF 3 ML SYR IV SCH (21:15)
[2019-01-01] MEDS: ENOXAPARIN 100MG/1ML SYRINGE (J1650) SC SCH (21:15)
[2019-01-01] MEDS: LevoFLOXacin IV 750 MG in APPROPRIATE DILUENT 1 EA IV SCH (22:29)
[2019-01-02] VITALS (8 sets, daily range): BP systolic 100–135; BP diastolic 64–80
[2019-01-02] MEDS: IPRATROPIUM 0.5MG/ALBUTEROL 2.5MG INH SOL UD 3ML (DUONEB)(J7620) NEB SCH ×6 (00:43→20:28)
[2019-01-02] MEDS: METOPROLOL TART 50 MG TAB PO SCH ×4 (03:58→20:00)
[2019-01-02] MEDS: SLF 3 ML SYR IV SCH ×3 (04:57→20:54)
[2019-01-02 05:37] LABS: HEMATOCRIT 40.7 % (42.0-52.0); HEMOGLOBIN 12.2 g/dl (13.5-17.5); MEAN CORPUSCULAR HEMOGLOBIN 28.6 pg (27.0-33.0); MEAN CORPUSCULAR VOLUME 95.3 fl (80.0-96.0); PLATELET COUNT, AUTOMATED 198 10^3/uL (150-450); RED BLOOD COUNT 4.27 10^6/uL (4.30-6.10); WHITE BLOOD COUNT 7.3 10^3/uL (4.0-10.0)
[2019-01-02 06:05] LABS: BLOOD UREA NITROGEN 23 MG/DL (7-18); CALCIUM LEVEL 8.2 MG/DL (8.8-10.2); CARBON DIOXIDE LEVEL 40 MEQ/L (21-32); CHLORIDE LEVEL 99 MEQ/L (98-107); CREATININE FOR GFR 0.77 MG/DL (0.70-1.30); GLOMERULAR FILTRATION RATE > 60.0 (>42); GLUCOSE, FASTING 94 MG/DL (70-100); MAGNESIUM LEVEL 2.4 MG/DL (1.8-2.4); PHOSPHORUS LEVEL 4.5 MG/DL (2.5-4.9); POTASSIUM SERUM 4.5 MEQ/L (3.5-5.1); SODIUM LEVEL 141 MEQ/L (136-145)
--- NOTE | 2019-01-02 08:16 | REP ---
CT-GUIDED RIGHT UPPER LOBE LUNG BIOPSY The procedure was performed under the direct supervision of Dr. Pichardo. Patient has a history of a large medial right upper lobe lung mass which is seen on a previous CT scan dated 12/28/2018. The risks and benefits of the procedure were explained to the patient and informed consent was obtained. The right upper lobe lung mass was localized using CT guidance. The skin was prepped and draped in a sterile fashion. 1% lidocaine was used as a local anesthetic. Using CT guidance a 19/20 gauge coaxial needle biopsy system was inserted and advanced into the mass. Six core biopsy samples were obtained and sent to lab. The patient tolerated the procedure well and there were no immediate complications. After the appropriate amount of monitored convalescence the patient was discharged from the department. Reviewed by JACK Zelaya 01/01/2019 04:09 P Electronically Signed by Marty Pichardo MD 01/01/2019 05:24 P
[2019-01-02] MEDS: ENOXAPARIN 100MG/1ML SYRINGE (J1650) SC SCH ×2 (09:28→20:00)
[2019-01-02] MEDS: predniSONE 20 MG TAB PO SCH (09:29)
--- NOTE | 2019-01-02 12:22 | IPN ---
DATE: 01/02/2019 Mr. Bliss has done well since yesterday. He eventually underwent his CT guided lung biopsy without events yesterday afternoon. From a respiratory point of view, he feels much improved. He denies any chest pain or sensation of palpitations. He has remained in sinus rhythm since yesterday. VITAL SIGNS: This morning: Blood pressure 132/79, heart rate has been in the 80s. He is afebrile. Saturation 95% on 3 liters of oxygen. Fluid balance yesterday was recorded as 1500 mL negative. Weight is 84.6 kg today, which if accurately documented would represent a drop of 5, almost 6 kg since admission. He is alert, oriented and appropriate. His jugular venous pressure is still high on both sides, probably more likely a consequence of central obstruction of superior vena cava rather than through elevated central venous pressure. Lungs are reasonably clear. I do not appreciate any wheezing. No crackles today. Heart exam is regular rhythm without gallop or rub. Abdomen is soft, nontender. There is no peripheral edema. Neurologically, he is intact. LABORATORY NAZARIO: His basic metabolic panel reveals a sodium of 141, potassium 4.5, BUN 23, creatinine 0.8, glucose 94. CBC showed hemoglobin 12.2, hematocrit 40.7, and platelet count 198,000. ASSESSMENT AND PLAN: Mr. Bliss is a 73-year-old who undoubtedly has advanced chronic obstructive pulmonary disease (COPD) and presented with respiratory failure. He was found to have a large right upper lobe mass encroaching on superior vena cava and there was a thrombus associated with it. He underwent biopsy of the mass yesterday and we are awaiting results. From a cardiac perspective, I was asked to see him because of atrial fibrillation. He converted to sinus rhythm and so far has been anticoagulated with Lovenox. I think that once the risk of bleeding from the biopsy is down, which I would assume is today or tomorrow, he should be switched to oral anticoagulant. My preference is for Eliquis 5 mg twice a day. I would continue his beta blockers, even though we probably can reduce the dose some. Further management will depend principally on results of the biopsy, it probably will not be operable, unfortunately. I am going to sign off his care. Please call me back if further assistance is desired. From my perspective, he should be anticoagulated for a minimum of 3 months.
[2019-01-02] MEDS: LevoFLOXacin 750 MG TABLET PO SCH (13:42)
--- NOTE | 2019-01-02 14:46 | IPNPDOC ---
Date Seen The patient was seen on 01/02/19. Progress Note SUBJECTIVE: Patient is a 73 yo male who was admitted for large lung mass and sob. Patient was found to have sepsis likely secondary to pneumonia as well as acute hypoxemic and likely acute on chronic hypercarbic respiratory failure secondary to chronic obstructive pulmonary disease (COPD) exacerbation and pneumonia. 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 He was placed on bipap which helped his combined resp failure. In ER he was started on ceftriaxone and azithromycin which was changed to iv levaquin 12/28. Sputum cx grew moraxella catarhallis and haemophilus influenza both should sensitive to levaquin. He was also started on high dose IV methylprednisolone which is being tapered. Patient also developed afib with rvr on 12/30 and was started on metoprolol now on 50mg q6h with better rate control, and he was already on lovenox for the possible svc thrombus. Human Performance Technologist, Dr. Guadalupe, was consulted on 12/31 and has been following since. Dr. Lieberman, pulm training and documentation specialist, has also been integral in his management since 12/29. He is clinically improved, s/p lung mass biopsy 01/01 which went well based on report. He denied any complaint today He denied fever, chills, chest pain, nausea , vomiting, diarrhea. He had PT today which went well. OBJECTIVE Physical exam Gen: NAD, chronically ill, but clinically improved HEENT: normocephalic, atraumatic, no discharge from ears or nose, no oropharyngeal erythema or exudate, neck is supple, no lymphadenopathy, trachea midline CVS: goes between sinus tach and afib, rate is better controlled, normal S1n S2, no murmur, rubs, or gallops, no edema, no jvd Resp: mild rhonchi, productive cough improved Abd : soft nontender, normal bowel sounds, no rebound tenderness or guarding MSK: no swelling, generalized weakness, decreased range of motion, but moves all extremities Neuro: AOAx2, no confusion, no focal deficit Psych: normal mood and affect, LABORATORY DATA, IMAGING STUDIES, MICROBIOLOGY: Please see below. - reviewed Echocardiogram: IMAGING: Echo showed normal ejection fraction (EF) with borderline concentric hypertrophy. Mildly dilated left atrium and evidence of left ventricular (LV) diastolic dysfunction. Mildly dilated right heart chambers with slightly redu warren right ventricular (RV) free wall motion and moderately-severe pulmonary hypertension. RV systolic pressure estimated at 57 mmHg. Mildly dilated inferior vena cava (IVC) with reduced respiratory collapse consistent with increase central venous pressure (CVP). Mild mitral valve insufficiency. Very miniscule posterior pericardial effusion. DVT prophylaxis ordered?: [y] ASSESSMENT AND PLAN: 1. RUL mass/. and ? thrombus -Lovenox 1mg/kg Q12H - -Continuous oxygen therapy +/- BiPaP -hold tonight and get abg in am -s/p biopsy 01/01 -f/u biopsy result 2. Shortness of breath- hypoxic and hypercapnic resp failure - improved - 2/2 COPD exacerbation, PNA and lung mass -DuoNebs Q4H STANDING and albuterol q2h prn, patient an likely be de-escalated to duoneb q4h prn, if pulm agrees -dc methylpred 40mg DAILY -po prednisonre 40mg daily -Continuous Oxygen therapy and titration for saturation 88-92% -bipap at night -Pulm following - consult appreciated -downgraded to pcu with telE -C/W LEVAQUIN DAY 03/02 3. Possible fluid overload: patient has peripheral edema - improved// pulm htn//cor pulmonale -BNP 1714 -on lasix as needed -echo shows - normal LV fxn, but RVSP OF 57 Aflutter//afib -new onset c/w metoprolol 50mg q6h On Lovenox - may be his best option given possible malignancy - recs per cardio see echo above site worker -Dr. Guadalupe consulted DVT ppx: On Lovenox CODE STATUS: DNR/DNI DISPOSITION: monitor off bipap today, dc planning tomorrow VS, I&O, 24H, Fishbone Vital Signs/I&O Vital Signs Date Time Temp Pulse Resp B/P (MAP) Pulse Ox O2 Delivery O2 Flow Rate FiO2 01/02/19 13:15 98.2 92 17 100/64 (76) 95 3.0 01/01/19 04:15 Nasal Cannula 12/30/18 08:00 40 I&O- Last 24 Hours up to 6 AM 01/02/19 06:00 Intake Total 620 ml Output Total 2250 ml Balance -1630 ml Laboratory Data 24H LABS Laboratory Tests 2 01/02/19 05:13: Nucleated Red Blood Cells % (auto) 0.0, Anion Gap 2L, Glomerular Filtration Rate > 60.0, Blood Urea Nitrogen 23H, Creatinine 0.77, Sodium Level 141, Potassium Level 4.5, Chloride Level 99, Carbon Dioxide Level 40H, Calcium Level 8.2L, Phosphorus Level 4.5, Magnesium Level 2.4 CBC/BMP Laboratory Tests 01/02/19 05:13 Red Blood Count 4.27 L, Mean Corpuscular Volume 95.3, Mean Corpuscular Hemoglobin 28.6, Mean Corpuscular Hemoglobin Concent 30.0 L, Red Cell Distribution Width 14.4, Calcium Level 8.2 L Microbiology Microbiology 12/28/18 Blood Culture - Preliminary, Resulted No Growth after 72 hours. All specime... 12/28/18 Blood Culture - Preliminary, Resulted No Growth after 72 hours. All specime... 12/29/18 Gram Stain - Final, Complete 12/29/18 Sputum Culture - Final, Complete Moraxella Catarrhalis Haemophilus Influenzae Yeast Like Organism BRIGIDO EPPS MD Jan 02, 2019 14:46
[2019-01-02] MEDS ORDERED: METOPROLOL TART 25 MG TABLET PO ONE (16:00)
[2019-01-03] VITALS (10 sets, daily range): BP systolic 99–115; BP diastolic 55–78; O2SAT 98
[2019-01-03] MEDS: IPRATROPIUM 0.5MG/ALBUTEROL 2.5MG INH SOL UD 3ML (DUONEB)(J7620) NEB SCH ×7 (00:03→23:27)
[2019-01-03] MEDS: METOPROLOL TART 50 MG TAB PO SCH ×4 (03:00→18:46)
[2019-01-03] MEDS ORDERED: METOPROLOL TART 25 MG TABLET PO ONE (04:00)
[2019-01-03 05:44] LABS: ABG BASE EXCESS 10.5 (-2.0-2.0); ABG HCO3 38.6 MEQ/L (22.0-26.0); ABG O2 SATURATION 92.2 % (95.0-99.0); ABG PARTIAL PRESSURE O2 63.1 mmHg (75.0-100.0); ABG STANDARD HCO3 34.1 MEQ/L (22.0-26.0); ABG TOTAL CO2 40.6 MEQ/L (23.0-31.0); ABG pH (ARTERIAL) 7.374 UNITS (7.350-7.450)
[2019-01-03] MEDS: SLF 3 ML SYR IV SCH ×3 (06:00→20:10)
[2019-01-03] MEDS: LevoFLOXacin 750 MG TABLET PO SCH (06:17)
[2019-01-03 06:21] LABS: ABG PARTIAL PRESSURE CO2 67.6 mmHg (35.0-45.0)
--- NOTE | 2019-01-03 06:33 | IPN ---
DATE OF SERVICE: 01/02/2019 The patient was seen and examined this morning. He reports that his breathing has been doing well. He denies any increased shortness of breath or dyspnea on exertion. He was able to ambulate around the unit and did not notice any significant shortness of breath. He continues to have an occasional cough, however, that is much improved. He has no wheezing noted. The patient did have a CT-guided chest biopsy done yesterday, the results are pending. PHYSICAL EXAMINATION: Temperature 98.2, pulse 92, respirations 17, blood pressure was 102/64 and O2 sat 95% on 3 liters nasal cannula, in 500 mL and out 2 liters and net negative 1.5 liters. General: The patient is an elderly male sitting in the chair. He is awake and alert and not in any apparent distress. He is able to converse in complete sentences. HEENT: Normocephalic, atraumatic. Has various seborrheic keratoses and moles on his face and scalp. Mucous membranes are moist. Neck is supple. No palpable cervical adenopathy. Cardiovascular: Regular rate and rhythm. Normal S1 and S2. Unable to appreciate murmurs. Lungs: Improved breath sounds bilaterally. No wheezing or rhonchi. Very minimal crackles at the bases. Abdomen is soft, nontender, nondistended. Positive bowel sounds. Extremities: No lower extremity edema noted bilaterally. Right upper extremity has some mild edema and is increased in size when compared to the left. LABORATORY DATA: WBC 7.3, hemoglobin 12.2, platelets 148. Chemistry: Sodium 141, potassium 4.5, chloride 99, bicarb 40, BUN 23, creatinine 0.77, glucose of 94, magnesium 2.4, phosphorus 4.5. ASSESSMENT/PLAN: The patient is a 73-year-old male with no previously known medical history except a history of smoking and some previous pulmonary nodules for which he had been lost to followup who presented with increasing shortness of breath, fatigue, weakness and chills. The patient was found to have sepsis likely secondary to pneumonia as well as an acute hypoxemic and acute on chronic hypercarbic respiratory failure likely secondary to chronic obstructive pulmonary disease (COPD) exacerbation and pneumonia. The patient was also found to have a right upper lobe mass on imaging with some compression and possible extension into his superior vena cava with a thrombus noted there. The patient also has evidence of some right heart failure with mildly severe pulmonary hypertension likely group III from his previously undiagnosed COPD with some chronic hypoxemic respiratory failure and hypercarbic respiratory failure. He was given some Lasix and has had good diuresis and he appears to be improving with his shortness of breath. The patient has also been afebrile and his white count is trending down. His sputum cultures were positive for Moraxella and he is continued on Levaquin for his pneumonia. Will continue nasal cannula supplementation and wean down as tolerated. The patient was started on BiPAP for his acute on chronic hypercarbic respiratory failure. As he appears to be symptomatically improving, will hold his BiPAP tonight and repeat an ABG in the morning. He will need a sleep study as an outpatient to evaluate for possible obstructive sleep apnea. Will follow up the results of his CT biopsy. Continue with DuoNebs and continue with prednisone 40 mg with a slow taper. CODE STATUS: DO NOT RESUSCITATE/DO NOT INTUBATE (DNR/DNI).
[2019-01-03] MEDS: ENOXAPARIN 100MG/1ML SYRINGE (J1650) SC SCH ×2 (08:30→20:09)
[2019-01-03] MEDS: predniSONE 20 MG TAB PO SCH (08:30)
--- NOTE | 2019-01-03 15:33 | IPNPDOC ---
Date Seen The patient was seen on 01/03/19. Progress Note SUBJECTIVE: The patient is a 73-year-old male with no known PMH presented to the ER with complaints of SOB with hypoxia and found to have RUL mass/thrombus extending into the SVC and Sepsis 2/2 Pneumonia. Patient s/p biopsy with indeterminate findings, started on Lovenox. Sputum culture + moraxella and h.influenza sensitive to Levaquin. He also developed Afib w/ RVR during course of hospitalization and started on metoprolol 50 mg q6. Interval history: Patient reported feeling well today, denying any complaints including SOB. Still on oxygen but saturation remain in low 90s. Pulmonary had discussed with patients regarding biopsy findings and he stated that he does not want to further investigate with a repeat biopsy or any procedures at this time. Wishes to go home. OBJECTIVE PHYSICAL EXAMINATION: General: No acute distress, Alert Eyes: Normal sclera, EOMI, YUKI HENT: Atraumatic, neck supple, moist mucous membranes Cardiovascular: Normal rate, normal rhythm. No murmurs appreciated. Pulmonary: Clear to auscultation b/l, no wheezing GI: Soft, nontender, nondistended Skin: Warm and dry. Multiple skin lesions throughout, particularly face. Neuro: CN grossly intact. No focal deficits. Strengths equal b/l. Psych: oriented x 3 LABORATORY DATA, IMAGING STUDIES, MICROBIOLOGY: Please see below. ASSESSMENT AND PLAN: 1. RUL Mass/Thrombus - s/p biopsy 01/01 with indeterminate findings. - Discussed with patient regarding the results and possible need to further investigation. - Patient does not want to do anything further at this time and will discuss as outpatient. - can either follow with Dr. Granados or Dr. Lieberman. - c/w Lovenox. For teaching today, CM to check coverage with insurance. 2. SOB - 2/2 COPD, PNA and lung mass. - on NC, will try to wean today. Will likely need home O2 if unable to wean. - c/w steroid taper. - Pulmonology following. - c/w Levaquin to complete today. - bipap at night. 3. Fluid overload - ECHO with normal EF/LV function, RSVP of 57. - BNP 1700 - Had received several doses of lasix. SOB improved. 4. New onset afib - c/w Metoprolol 50 mg q6 - c/w Lovenox. - Cardiology following. Dr. Guadalupe. DVT ppx: lovenox CODE: DNR/DNI Patient is high risk due to lung mass with hypoxia Estimated length of stay 4-5 days with expected disposition to home likely tomorrow. VS, I&O, 24H, Fishbone Vital Signs/I&O Vital Signs Date Time Temp Pulse Resp B/P (MAP) Pulse Ox O2 Delivery O2 Flow Rate FiO2 01/03/19 14:45 95 101/58 (72) 93 1.0 01/03/19 12:00 98.3 19 01/03/19 07:30 Nasal Cannula 12/30/18 08:00 40 I&O- Last 24 Hours up to 6 AM 01/03/19 06:00 Intake Total 1200 ml Output Total 2476 ml Balance -1276 ml Laboratory Data 24H LABS Laboratory Tests 2 01/03/19 05:32: Blood Gas Bicarbonate Standard 34.1H, Arterial Blood pH 7.374, Arterial Blood Partial Pressure CO2 67.6*H, Arterial Blood Partial Pressure O2 63.1L, Arterial Blood Total CO2 40.6H, Arterial Blood HCO3 38.6H, Arterial Blood Base Excess 10.5H, Arterial Blood Oxygen Saturation 92.2L Microbiology Microbiology 12/28/18 Blood Culture - Final, Complete NO GROWTH AFTER 5 DAYS 12/28/18 Blood Culture - Final, Complete NO GROWTH AFTER 5 DAYS 12/29/18 Gram Stain - Final, Complete 12/29/18 Sputum Culture - Final, Complete Moraxella Catarrhalis Haemophilus Influenzae Yeast Like Organism SUE DELGADO MD Jan 03, 2019 15:33
[2019-01-03] MEDS ORDERED: LOPR1TAB6 PO (17:05)
[2019-01-03] MEDS ORDERED: LOVE0.8I SC (17:05)
[2019-01-04] MEDS: METOPROLOL TART 50 MG TAB PO SCH ×2 (03:27→09:54)
[2019-01-04 04:00] VITALS: BP 112/58
[2019-01-04] MEDS: IPRATROPIUM 0.5MG/ALBUTEROL 2.5MG INH SOL UD 3ML (DUONEB)(J7620) NEB SCH ×3 (04:02→12:00)
[2019-01-04] MEDS: LevoFLOXacin 750 MG TABLET PO SCH (05:01)
[2019-01-04] MEDS: SLF 3 ML SYR IV SCH ×2 (05:01→14:00)
[2019-01-04 05:27] LABS: HEMATOCRIT 42.5 % (42.0-52.0); HEMOGLOBIN 13.3 g/dl (13.5-17.5); MEAN CORPUSCULAR HEMOGLOBIN 29.5 pg (27.0-33.0); MEAN CORPUSCULAR HGB CONC 31.3 g/dl (32.0-36.5); MEAN CORPUSCULAR VOLUME 94.2 fl (80.0-96.0); PLATELET COUNT, AUTOMATED 196 10^3/uL (150-450); RED BLOOD COUNT 4.51 10^6/uL (4.30-6.10)
[2019-01-04 08:00] VITALS: BP 122/74
[2019-01-04] MEDS: predniSONE 20 MG TAB PO SCH (09:53)
[2019-01-04 09:54] VITALS: BP 110/70
[2019-01-04] MEDS: ENOXAPARIN 100MG/1ML SYRINGE (J1650) SC SCH (09:55)
[2019-01-04 12:00] VITALS: BP 134/80
[2019-01-04] MEDS ORDERED: VENTAER INH (12:32)
[2019-01-04] MEDS ORDERED: LEVA750T7 PO (12:32)
--- NOTE | 2019-01-04 12:47 | DS.PDOC ---
Discharge Summary General Date of Admission Dec 28, 2018 at 23:00 Date of Discharge 01/04/19 Specialist/Consultants Involve: JULIO JEROME MD Specialist/Consultants Involve Dr. Guadalupe Discharge Summary PROCEDURES PERFORMED DURING STAY: Lung biopsy- FINAL DIAGNOSIS Right lung mass, CT guided core biopsy: Fragments of necrotic tissue, no acid-fast bacilli or fungal organisms seen on AFB and GMS stains. See note. Note: Absence of viable tissue precludes a definitive diagnosis. Necrotizing granuloma and necrotic neoplasm are the possibilities. Clinical correlation and repeat biopsy may be necessary. ADMITTING DIAGNOSES: 1. RUL Mass. 2. SOB suspected COPD 3. Fluid overload DISCHARGE DIAGNOSES: 1. RUL mass 2. Pneumonia 3. Suspected COPD 4. new onset Afib COMPLICATIONS/CHIEF COMPLAINT: Mass Or Upper Lobe Of R Lung, Pneumonia. HISTORY OF PRESENT ILLNESS: "Roverto Bliss is a 73 YO M with extensive smoking history presents to the ED with SOB, decreased appetite, weakness and worsening fatigue for the past week. He does not have a primary care physician and thus has no known past medical history. He is accompanied by his daughter, who sees him every day at his house and has noticed he has not been eating his m eals and today his breathing is labored with very light activity. He has cut down his smoking recently from 1-2 packs a day to 1-3 cigarettes a day. Usually, he is able to get around and can walk 2-3 blocks without fatigue or shortness of breath but lately he cannot make it from his living room to the bathroom without getting short of breath. He sleeps in a recliner because he is unable to lay fla t comfortably. He has had a fever and chills for one day, reports headaches and lightheadedness. He denies any palpitations, face or neck swelling." HOSPITAL COURSE: Patient is a 73-year-old male with no prior significant past medical history presented to the ER with complaints of shortness of breath found to have a right upper lobe mass/thrombus compressing into the SVC. He was also noted to be septic secondary to pneumonia positive for Moraxella and Haemophilus influenza on sputum culture. Course of hospitalization also complicated by new onset atrial fibrillation with RVR and was started on beta ann marie and anticoagulation Lovenox. Patient was treated with IV antibiotics as well as underwent biopsy of lung mass which there were no viable tissue and precludes a definitive diagnosis. Pulmonary and been on board and follow closely with patient. Had discuss biopsy findings with patient and patient had decided that he does not want to further investigate with repeat biopsy or interventions at this time. He is clinically improved reporting no complaints at this time and wishes to go home. We'll discharge patient home to follow-up with PCP as well as pulmonology as outpatient to rediscuss plans from here on, whether to undergo another biopsy or not. DISCHARGE MEDICATIONS: Please see below. ALLERGIES: Please see below. PHYSICAL EXAMINATION ON DISCHARGE: LABORATORY DATA: Please see below. IMAGING: CXR- Findings: There is a large right hilar mass which represents a new finding as compared to prior chest CT dated 03/26/2016. Basilar atelectasis and possible small right pleural reaction cannot be excluded. Remainder examination demonstrates chronic appearing changes. Cardiac silhouette is within normal limits. Skeletal structures demonstrate degenerative changes. Impression: Large right hilar mass and suspected basilar atelectasis with small right pleural reaction. CTA- Impression: 1. 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 Associated mediastinal adenopathy up to 2.5 cm. 2. Right lower lobe consolidation along with bibasilar atelectasis and small right pleural reaction. 3. Mild/moderate chronic COPD/emphysematous changes and scattered age-related interstitial changes. ACTIVITY: [As tolerated]. DIET: Regular diet DISCHARGE PLAN: f/u PCP and Pulmonology to discuss next step with lung mass investigation DISPOSITION: Home. DISCHARGE INSTRUCTIONS: 1. f/u PCP and Pulmonology. ITEMS TO FOLLOWUP ON ON OUTPATIENT: 1. None DISCHARGE CONDITION: [Stable]. TIME SPENT ON DISCHARGE: Greater than 35 minutes. Vital Signs/I&Os Vital Signs Date Time Temp Pulse Resp B/P (MAP) Pulse Ox O2 Delivery O2 Flow Rate FiO2 01/04/19 12:00 97.3 83 18 134/80 (98) 92 01/04/19 06:00 1.0 01/03/19 07:30 Nasal Cannula 12/30/18 08:00 40 I&O- Last 24 Hours up to 6 AM 01/04/19 06:00 Intake Total 1040 ml Output Total 1400 ml Balance -360 ml Laboratory Data Labs 24H Laboratory Tests 2 01/04/19 05:09: Nucleated Red Blood Cells % (auto) 0.0 CBC/BMP Laboratory Tests 01/04/19 05:09 Red Blood Count 4.51, Mean Corpuscular Volume 94.2, Mean Corpuscular Hemoglobin 29.5, Mean Corpuscular Hemoglobin Concent 31.3 L, Red Cell Distribution Width 14.2 Microbiology Microbiology 12/28/18 Blood Culture - Final, Complete NO GROWTH AFTER 5 DAYS 12/28/18 Blood Culture - Final, Complete NO GROWTH AFTER 5 DAYS 12/29/18 Gram Stain - Final, Complete 12/29/18 Sputum Culture - Final, Complete Moraxella Catarrhalis Haemophilus Influenzae Yeast Like Organism Discharge Medications Scheduled Enoxaparin Sodium (Lovenox) 100 Mg/1 Ml Syringe, 90 MG SC Q12H Levofloxacin (Levaquin) 750 Mg Tablet, 750 MG PO DAILY@06 Metoprolol Tartrate (Lopressor) 50 Mg Tablet, 100 MG PO BID Scheduled PRN Albuterol Sulfate (Ventolin Hfa) 18 Gm Hfa.aer.ad, 2 PUFF INH Q4-6HP PRN for wheezing Allergies Coded Allergies: No Known Allergies (Unverified , 01/26/14) SUE DELGADO MD Jan 04, 2019 12:47
== END 2019-01-04 15:31 | disposition home or self-care (01) | DRG 871 ==
LOC: EDBD 16:09 → M ED 16:09 → M ED INP 23:00 → M ICU 12-29 01:03 → M PCU 01-01 16:50
PROVIDERS: ADMIT Student in an Organized Health Care Education/Training Program; ATTEND Student in an Organized Health Care Education/Training Program
PROC: 0BBC3ZX Excision of Right Upper Lung Lobe, Percutaneous Approach, Diagnostic (ICD-10-PCS; principal; 2019-01-01)
DX: A41.9 Sepsis, unspecified organism (principal); J14 Pneumonia due to Hemophilus influenzae; I48.92 Unspecified atrial flutter; J44.1 Chronic obstructive pulmonary disease with (acute) exacerbation; R65.20 Severe sepsis without septic shock; R91.8 Other nonspecific abnormal finding of lung field; I48.91 Unspecified atrial fibrillation; F17.210 Nicotine dependence, cigarettes, uncomplicated; Z66 Do not resuscitate

== ENCOUNTER 2019-01-19 06:40 | Observation (INO) | payer MEDICARE ==
[~2019-01-19] VITALS: Ht 188 cm; Wt 90.9 kg
[~2019-01-19 06:40] MED LIST changes: +LEVA750T7 PO; +LOPR1TAB6 PO; +LOVE0.8I SC; +VENTAER INH
[2019-01-19] MEDS ORDERED: NALOXONE INJ 0.4 MG/1 ML VIAL (J2310) As Ordered ONE (06:44)
[2019-01-19] MEDS ORDERED: NS 1,000 ML IV ONE ×2 (06:45→08:45)
[2019-01-19] MEDS ORDERED: NALOXONE INJ 2 MG/2 ML SYRINGE (J2310) As Ordered ONE (06:46)
[2019-01-19] MEDS ORDERED: LOPR1TAB6 PO ×2 (06:59→10:18)
[2019-01-19] MEDS ORDERED: AMOX875T2 PO ×2 (06:59→10:18)
[2019-01-19] MEDS ORDERED: HYDR12.55 PO (06:59)
[2019-01-19] MEDS ORDERED: ALBU83IN NEB (06:59)
[2019-01-19 07:12] LABS: ABG BASE EXCESS 2.4 (-2.0-2.0); ABG HCO3 39.2 MEQ/L (22.0-26.0); ABG O2 SATURATION 93.2 % (95.0-99.0); ABG PARTIAL PRESSURE CO2 164.9 mmHg (35.0-45.0); ABG PARTIAL PRESSURE O2 93.1 mmHg (75.0-100.0); ABG STANDARD HCO3 26.5 MEQ/L (22.0-26.0); ABG TOTAL CO2 44.3 MEQ/L (23.0-31.0); ABG pH (ARTERIAL) 6.994 UNITS (7.350-7.450)
--- NOTE | 2019-01-19 07:21 | REPVR ---
EXAM: CT Head Without Contrast EXAM DATE/TIME: 01/19/2019 6:45 AM CLINICAL HISTORY: 73 years old, male; Signs and symptoms; Coma or unconsciousness; Additional info: Altered mental status TECHNIQUE: Imaging protocol: Axial computed tomography images of the head/brain without contrast. Radiation optimization: All CT scans at this facility use at least one of these dose optimization techniques: automated exposure control; mA and/or kV adjustment per patient size (includes targeted exams where dose is matched to clinical indication); or iterative reconstruction. COMPARISON: No relevant prior studies available. FINDINGS: Brain: There is mild, diffuse parenchymal volume loss. There is mild diffuse heterogeneity of the white matter attenuation, consistent with chronic white matter ischemic changes. The cortical/white matter interfaces are grossly preserved throughout the brain. There is no evidence of intracranial hemorrhage. There is a small focus of low attenuation in the left caudate head, probably a chronic lacunar infarct. Ventricles: The ventricular system demonstrates mild diffuse compensatory enlargement. Bones/joints: No acute fractures of the skull are identified. Sinuses: There is diffuse prominent mucoperiosteal thickening in the left maxillary sinus. There is mild mucoperiosteal thickening in the ethmoid sinus. No fluid levels. Mastoid air cells: The left mastoid is clear. The visualized right mastoid air cells are clear. Soft tissues: Unremarkable. IMPRESSION: 1. No evidence of acute infarct or acute intracranial hemorrhage. 2. Evidence of chronic sinusitis most prominently affecting the left maxillary sinus. Electronically signed by: Sandee Blandon On 01/19/2019 07:21:27 AM
--- NOTE | 2019-01-19 07:30 | REPVR ---
EXAM: CT Abdomen and Pelvis Without Contrast EXAM DATE/TIME: 01/19/2019 6:45 AM CLINICAL HISTORY: 73 years old, male; Signs and symptoms; Other: Semi responsive; Additional info: Altered mental status TECHNIQUE: Imaging protocol: Axial computed tomography images of the abdomen and pelvis without contrast. Coronal and sagittal reformatted images were created and reviewed. Radiation optimization: All CT scans at this facility use at least one of these dose optimization techniques: automated exposure control; mA and/or kV adjustment per patient size (includes targeted exams where dose is matched to clinical indication); or iterative reconstruction. COMPARISON: No relevant prior studies available. FINDINGS: Limitations: There is beam hardening artifact from the patients arms at his sides. There is motion artifact. ABDOMEN: Liver: No gross focal lesions are seen within the liver, although assessment is limited by artifact and the lack of contrast. Gallbladder and bile ducts: The gallbladder is nonvisualized and presumably has been resected. There is no biliary ductal dilation. Pancreas: The pancreas appears grossly unremarkable. Spleen: The spleen demonstrates punctate calcifications, consistent with remote granulomatous organism exposure. Adrenals: The adrenal glands are normal. Kidneys and ureters: Small calcifications in the kidneys may be small nonobstructing stones or vascular calcifications.There is no hydronephrosis. The nondilated distal ureters are difficult to trace, but no stones are seen along their expected course. Stomach and bowel: Mild diverticulosis is present in the distal colon. There is no gross dilation or thickening of the small bowel or the colon, but assessment of the bowel is limited by motion artifact. Appendix: The appendix is not specifically identified. PELVIS: Bladder: The bladder wall appears thickened but may be accentuated by underdistention. Reproductive: The prostate gland demonstrates nonspecific parenchymal calcifications. Subperitoneal space: There is nonspecific perirectal stranding. ABDOMEN and PELVIS: Intraperitoneal space: There is a small amount of free intraperitoneal fluid present. There is no gross free air. Bones/joints: Degenerative endplate changes are seen at multiple levels in the visualized spine. The bones are osteopenic. There is facet arthropathy in the lumbar spine. Soft tissues: There is mild diffuse subcutaneous tissue edema. Vasculature: Atherosclerotic changes are present in the abdominal aorta and the iliac arteries. There is dilation of the infrarenal abdominal aorta to 3.5 cm. Lymph nodes: No lymphadenopathy is seen. Other findings: See the report for the CT scan of the chest findings in the lower chest. IMPRESSION: 1. Somewhat limited exam due to the lack of oral and IV contrast, a beam hardening artifact, and motion artifact. 2. Small amount of nonspecific free fluid. 3. Mild dilation of the infrarenal abnormal aorta, measuring up to 3.5 cm. Electronically signed by: Sandee Blandon On 01/19/2019 07:30:05 AM
--- NOTE | 2019-01-19 07:44 | REPVR ---
EXAM: CT Chest Without Contrast EXAM DATE/TIME: 01/19/2019 6:45 AM CLINICAL HISTORY: 73 years old, male; Signs and symptoms; Other: Semi responsive; Additional info: Altered mental status TECHNIQUE: Imaging protocol: Axial computed tomography images of the chest without intravenous contrast. Coronal and sagittal reformatted images were created and reviewed. Radiation optimization: All CT scans at this facility use at least one of these dose optimization techniques: automated exposure control; mA and/or kV adjustment per patient size (includes targeted exams where dose is matched to clinical indication); or iterative reconstruction. COMPARISON: CT ANGIO CHEST 12/28/2018 7:31 PM FINDINGS: Lungs: There is an increase in the density in the surrounding lung in the right upper lobe compared to the prior exam, probably representing post obstructive pneumonia in the adjacent lung, although hemorrhage, lymphatic obstruction, or contiguous spread of tumor are of possible. There is continued volume loss as consolidation in the right lower lobe and right middle lobe, similar to the prior exam. There is narrowing of the bronchus intermedius.Mild volume loss and peripheral density in the left lower lobe are similar to the prior exam. Motion artifact limits the assessment of the fine detail of the lungs. Pleural space: There is a small right pleural effusion and a trace of left pleural fluid. Heart: The heart is enlarged, grossly unchanged. Mediastinum: A mass is again seen anteromedially within the right upper lung with extension to the right mediastinum, as seen on the prior exam. Aorta: The aorta demonstrates moderate atherosclerotic calcification. Lymph nodes: There is mediastinal and right hilar lymphadenopathy, grossly unchanged. There are calcified right hilar and subcarinal lymph nodes as well. Bones/joints: Advanced loss of height and wedge-shaped configuration of a mid thoracic vertebral body is unchanged. The bones are diffusely osteopenic. Degenerative endplate changes are seen at multiple levels in the visualized spine. Soft tissues: Unremarkable. Upper abdomen: There is persistent elevation of the right diaphragm. IMPRESSION: 1. Large mass again seen in the right upper lung, contiguous with the right side of the mediastinum, as seen on the recent prior CT scan. Increased in the lung surrounding the mass compared to the prior exam, probably representing postobstructive pneumonia. 2. Continued volume loss and consolidation in the right lung base, with persistent elevation right diaphragm and left basilar mild volume loss and consolidation probably due to atelectasis although superimposed infection/inflammation could be present. Electronically signed by: Sandee Blandon On 01/19/2019 07:44:06 AM
[2019-01-19 07:46] LABS: BASO % 0.2 % (0.0-1.0); EOS % 0.1 % (0.0-3.0); HEMATOCRIT 45.7 % (42.0-52.0); HEMOGLOBIN 13.2 g/dl (13.5-17.5); LYMPH # 0.9 10^3/uL (1.5-4.5); LYMPH % 11.4 % (24.0-44.0); MEAN CORPUSCULAR HEMOGLOBIN 28.9 pg (27.0-33.0); MEAN CORPUSCULAR HGB CONC 28.9 g/dl (32.0-36.5); MEAN CORPUSCULAR VOLUME 100.2 fl (80.0-96.0); MONO # 1.1 10^3/uL (0.0-0.8); MONO % 12.8 % (0.0-5.0); NEUTROPHILS # 6.2 10^3/uL (1.8-7.7); NEUTROPHILS % 74.8 % (36.0-66.0); PLATELET COUNT, AUTOMATED 238 10^3/uL (150-450); RED BLOOD COUNT 4.56 10^6/uL (4.30-6.10); WHITE BLOOD COUNT 8.3 10^3/uL (4.0-10.0)
[2019-01-19 08:17] LABS: ACETAMINOPHEN LEVEL < 2.0 UG/ML (10.0-30.0); ALBUMIN 3.1 GM/DL (3.2-5.2); ALT/SGPT 23 U/L (12-78); BILIRUBIN,DIRECT 0.2 MG/DL (0.0-0.2); BILIRUBIN,TOTAL 0.5 MG/DL (0.2-1.0); BLOOD UREA NITROGEN 21 MG/DL (7-18); CALCIUM LEVEL 8.4 MG/DL (8.8-10.2); CARBON DIOXIDE LEVEL 40 MEQ/L (21-32); CHLORIDE LEVEL 100 MEQ/L (98-107); CPK CREATINE PHOSPHOKINASE 23 U/L (39-308); CREATININE FOR GFR 0.85 MG/DL (0.70-1.30); ETHYL ALCOHOL (ETHANOL) < 0.003 % (0.000-0.010); GLOMERULAR FILTRATION RATE > 60.0 (>42); GLUCOSE, FASTING 121 MG/DL (70-100); MB/CK RELATIVE INDEX 4.34 (< OR =4); POTASSIUM SERUM 5.1 MEQ/L (3.5-5.1); SALICYLATE LEVEL < 1.7 MG/DL (5.0-30.0); SODIUM LEVEL 141 MEQ/L (136-145); TOTAL PROTEIN 6.8 GM/DL (6.4-8.2); TROPONIN I < 0.02 NG/ML (< 0.10)
[2019-01-19 10:16] LABS: ABG BASE EXCESS -4.5 (-2.0-2.0); ABG O2 SATURATION 97.7 % (95.0-99.0); ABG PARTIAL PRESSURE O2 141.8 mmHg (75.0-100.0); ABG STANDARD HCO3 20.8 MEQ/L (22.0-26.0); ABG TOTAL CO2 40.1 MEQ/L (23.0-31.0)
[2019-01-19 10:17] LABS: ABG pH (ARTERIAL) 6.855 UNITS (7.350-7.450)
[2019-01-19] MEDS ORDERED: HYDR25TAB PO (10:18)
[2019-01-19] MEDS ORDERED: LOVE0.8I SC (10:18)
[2019-01-19] MEDS ORDERED: VENTAER INH (10:18)
[2019-01-19] MEDS ORDERED: ALB2.5NEB INH (10:18)
[2019-01-19 10:20] LABS: ABG PARTIAL PRESSURE CO2 197.1 mmHg (35.0-45.0)
[2019-01-19 10:45] VITALS: BP 142/86
[2019-01-19] MEDS ORDERED: MORPHINE 4 MG/ML 1ML VIAL/SYRINGE (J2270) IV PRN (11:00)
[2019-01-19] MEDS ORDERED: LORazepam 2 MG/ML VIAL (J2060) IV PRN (11:00)
--- NOTE | 2019-01-19 14:51 | HPEPDOC ---
General Date of Admission Jan 19, 2019 at 10:48 Chief Complaint The patient is a 73-year-old male admitted with a reason for visit of Acute Res piratory Failure W/ Hypercapnia. 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 Lung biopsy showed only necrotic material though radiologically it looked a malignant however patient did not want any further work up for cancer or the mass done. He was admitted here from to 01/04/19 and treated for pneumonia, Afib with RVR and COPD his symptoms improved and he went home to follow up with PMD and pulmonary as outpatient. As per daughter he was in his usual state of health till yesterday. he was out and about as usual . This morning she went to his house to check on he was lying in his recliner where he normally sleeps but seemed very tired and poorly responsive. Normally at that time he is up an about and waiting for his d aughter. Ems was called for altered mental status. On arrival to the ED he was nonresponsive with a GCS of 3 as per ED physician. He had a fall 2 days ago at home and had a bruising on the forehead had a CT head done which was negative for any acute hemorrhage or infarction. he had a ABG done which showed a ph of 6.99, pCO2 of 164 and Po2 of 99. He had advance directive in place as DNR and DNI. He was started on BIPAP Acute on chronic respiratory failure with hypoxia and hypercarbia. Repeat ABG after about 3 hours showed worsening of ABG pH 6.88 pCO2 197, pO2 141. LIVESTOCK BREEDER was discussed with HCP and other family members and explained that the BIPAP is not helping and there is no chance that he would survive this hospitalization . They then opted to make the patient LIVESTOCK BREEDER . Patient was admitted to the hospitalist service in LIVESTOCK BREEDER status. Home Medications Scheduled Amoxicillin/Potassium Clav (Amox-Clav 875-125 mg Tablet) 1 Each Tablet, 875 MG PO BID, (Reported) FILLED 01/18/19 FOR 10 DAYS Enoxaparin Sodium (Lovenox) 100 Mg/1 Ml Syringe, 90 MG SC Q12H, (Reported) Hydrochlorothiazide (Hydrochlorothiazide) 25 Mg Tablet, 25 MG PO DAILY, (Reported) Metoprolol Tartrate (Lopressor) 50 Mg Tablet, 50 MG PO BID, (Reported) Scheduled PRN Albuterol Sulfate (Albuterol Sulfate) 2.5 Mg/0.5 Ml Vial.neb, 2.5 MG INH Q4H PRN for SHORTNESS OF BREATH, (Reported) Albuterol Sulfate (Ventolin Hfa) 18 Gm Hfa.aer.ad, 2 PUFF INH Q6H PRN for SHORTNESS OF BREATH, (Reported) Allergies Coded Allergies: No Known Allergies (Unverified , 01/26/14) Past Medical History Medical History COPD with emphysema Chronic respiratory failure with hypercarbia and hypoxia skin cancer in the remote past Afib diagnosed earlier this month Large medial right upper lobe mass with evidence for obstruction of the right subclavian vein as well as 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 Information taken from daughter. No fever or chills noted, No nausea or vomiting or diarrhea noted at home, DId not complain of chest pain or cough or palpitation prior to becoming nonresponsive. Physical Examination General Exam: Positive: Other (Nonresponsive on BIPAP) ENT Exam: Positive: Other ENT (there is a bruising on the left forehead and periorbital area.) Neck Exam: Positive: Supple Chest Exam: Positive: Diminished Heart Exam: Positive: Tachycardic, Irregular Rhythm, Normal S1, Normal S2; Negative: Gallops, Murmurs, Rubs Telemetry: Positive: Atrial fibrillation Abdomen Exam: Positive: BS Hypoactive, Soft Extremity Exam: Negative: Edema Neuro Exam: Positive: Other (unconscious, GCS 3) Vital Signs Vital Signs Date Time Temp Pulse Resp B/P (MAP) Pulse Ox O2 Delivery O2 Flow Rate FiO2 01/19/19 10:45 106 14 142/86 (104) 99 01/19/19 09:45 98.8 NIPPV (BIPAP/CPAP) 01/19/19 09:01 100 01/19/19 06:48 8.0 Laboratory Data Labs 24H Laboratory Tests 2 01/19/19 06:59: Blood Gas Bicarbonate Standard 26.5H, Arterial Blood pH 6.994*L, Arterial Blood Partial Pressure CO2 164.9*H, Arterial Blood Partial Pressure O2 93.1, Arterial Blood Total CO2 44.3H, Arterial Blood HCO3 39.2H, Arterial Blood Base Excess 2.4H, Arterial Blood Oxygen Saturation 93.2L 01/19/19 07:10: Lactic Acid Level 0.7 01/19/19 07:12: Anion Gap 1L, Glomerular Filtration Rate > 60.0, Calcium Level 8.4L, Aspartate Amino Transf (AST/SGOT) 14, Alanine Aminotransferase (ALT/SGPT) 23, Alkaline Phosphatase 70, Total Bilirubin 0.5, Direct Bilirubin 0.2, Total Creatine Kinase 23L, Creatine Kinase MB 1.0, Creatine Kinase MB Relative Index 4.34H, Troponin I < 0.02, Total Protein 6.8, Albumin 3.1L, Albumin/Globulin Ratio 0.84L, Thyroid Stimulating Hormone (TSH) 1.260, Salicylates Level < 1.7L, Acetaminophen Level < 2.0L, Ethyl Alcohol Level < 0.003 01/19/19 07:13: Immature Granulocyte % (Auto) 0.7, White Blood Count 8.3, Red Blood Count 4.56, Hemoglobin 13.2L, Hematocrit 45.7, Mean Corpuscular Volume 100.2H, Mean Corpuscular Hemoglobin 28.9, Mean Corpuscular Hemoglobin Concent 28.9L, Red Cell Distribution Width 15.1H, Platelet Count 238, Neutrophils (%) (Auto) 74.8H, Lymphocytes (%) (Auto) 11.4L, Monocytes (%) (Auto) 12.8H, Eosinophils (%) (Auto) 0.1, Basophils (%) (Auto) 0.2, Neutrophils # (Auto) 6.2, Lymphocytes # (Auto) 0.9L, Monocytes # (Auto) 1.1H, Eosinophils # (Auto) 0.0, Basophils # (Auto) 0.0, Nucleated Red Blood Cells % (auto) 0.0, Ammonia 44H 01/19/19 10:02: Blood Gas Bicarbonate Standard 20.8L, Arterial Blood pH 6.855*L, Arterial Blood Partial Pressure CO2 197.1*H, Arterial Blood Partial Pressure O2 141.8H, A rterial Blood Total CO2 40.1H, Arterial Blood HCO3 34.0H, Arterial Blood Base Excess -4.5L, Arterial Blood Oxygen Saturation 97.7 CBC/BMP Laboratory Tests 01/19/19 07:12 01/19/19 07:13 Red Blood Count 4.56, Mean Corpuscular Volume 100.2 H, Mean Corpuscular Hemoglobin 28.9, Mean Corpuscular Hemoglobin Concent 28.9 L, Red Cell Distribution Width 15.1 H, Neutrophils (%) (Auto) 74.8 H, Lymphocytes (%) (Auto) 11.4 L, Monocytes (%) (Auto) 12.8 H, Eosinophils (%) (Auto) 0.1, Basophils (%) (Auto) 0.2, Neutrophils # (Auto) 6.2, Lymphocytes # (Auto) 0.9 L, Monocytes # (Auto) 1.1 H, Eosinophils # (Auto) 0.0, Basophils # (Auto) 0.0 Microbiology Microbiology 01/19/19 Blood Culture, Received Pending 01/19/19 Blood Culture, Received Pending Assessment/Plan 73 year old male with heavy smoking history known to have history of lung nodules followed up till 2016 then lost to follow up, COPD with emphysema with chronic respiratory failure with hypoxia and hypercarbia, skin cancer in the remote past Afib diagnosed earlier this month, was found to have a Large medial right upper lobe mass with 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 Lung biopsy showed only necrotic material though radiologically it looked a malignant however patient did not want any further work up for cancer or the mass done. He was admitted here from to 01/04/19 and treated for pneumonia, Afib with RVR and COPD his symptoms improved and he went home to follow up with PMD and pulmonary as outpatient. As per daughter he was in his usual state of health till yesterday. he was out and about as usual . This morning she went to his house to check on he was lying in his recliner where he normally sleeps but seemed very tired and poorly responsive. Normally at that time he is up an about and waiting for his daughter. Ems was called for altered mental status. On arrival to the ED he was nonresponsive with a GCS of 3 as per ED physician. He had a fall 2 days ago at home and had a bruising on the forehead had a CT head done which was negative for any acute hemorrhage or infarction. he had a ABG done which showed a ph of 6.99, pCO2 of 164 and Po2 of 99. He had advance directive in place as DNR and DNI. He was started on BIPAP Acute on chronic respiratory failure with hypoxia and hypercarbia. Repeat ABG after about 3 hours showed worsening of ABG pH 6.88 pCO2 197, pO2 141. LIVESTOCK BREEDER was discussed with HCP and other family members and explained that the BIPAP is not helping and there is no chance that he would survive this hospitalization . They then opted to make the patient LIVESTOCK BREEDER . Patient was admitted to the hospitalist service in LIVESTOCK BREEDER status. LIVESTOCK BREEDER status will dc BIPAP give morphine and ativan for pain, agitation and SOB NPO, No labs, no xrays, no vitals I expect the patient's demise to be within the next 1 to 2 hours. Acute on chronic respiratory failure with hypercarbia and hypoxia RUL large lung mass most probably malignant as per radiological appearance SVC thrombus and occlusion felt to be due to either extension of malignancy or malignant thrombus A fib with rvr On Lovenox at home CT head no bleeding. Advanced COPD with emphysema , chronic respiratory failure and severe pulmonary hypertension. Plan / VTE VTE Prophylaxis Ordered?: No VTE Exclusion Pharmacological: Patient/Family Refusal DINORAH HALLMAN MD Jan 19, 2019 12:30
--- NOTE | 2019-01-19 16:01 | IPNPDOC ---
Text Note Date of Service The patient was seen on 01/19/19. 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 in about 15 minutes pateint . family at bedside. Patient declared at 11 am. A-FIB/CHADSVASC A-FIB History Current/History of A-Fib/PAF?: No VS,Fishbone, I+O VS, Fishbone, I+O Laboratory Tests 01/19/19 07:12 01/19/19 07:13 Red Blood Count 4.56, Mean Corpuscular Volume 100.2 H, Mean Corpuscular Hemoglobin 28.9, Mean Corpuscular Hemoglobin Concent 28.9 L, Red Cell Distribution Width 15.1 H, Neutrophils (%) (Auto) 74.8 H, Lymphocytes (%) (Auto) 11.4 L, Monocytes (%) (Auto) 12.8 H, Eosinophils (%) (Auto) 0.1, Basophils (%) (Auto) 0.2, Neutrophils # (Auto) 6.2, Lymphocytes # (Auto) 0.9 L, Monocytes # (Auto) 1.1 H, Eosinophils # (Auto) 0.0, Basophils # (Auto) 0.0 Vital Signs Date Time Temp Pulse Resp B/P (MAP) Pulse Ox O2 Delivery O2 Flow Rate FiO2 01/19/19 10:45 106 14 142/86 (104) 99 01/19/19 09:45 98.8 NIPPV (BIPAP/CPAP) 01/19/19 09:01 100 01/19/19 06:48 8.0 DINORAH HALLMAN MD Jan 19, 2019 16:01
--- NOTE | 2019-01-19 19:49 | ECGEPIP ---
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
== END 2019-01-19 11:00 | disposition expired ==
LOC: M ED 06:40 → M ED INP 10:48
PROVIDERS: ADMIT Internal Medicine Nephrology; ATTEND Internal Medicine Nephrology
DX: J96.22 Acute and chronic respiratory failure with hypercapnia (principal); J96.21 Acute and chronic respiratory failure with hypoxia; R91.8 Other nonspecific abnormal finding of lung field; I82.210 Acute embolism and thrombosis of superior vena cava; I48.91 Unspecified atrial fibrillation; J43.9 Emphysema, unspecified; I27.20 Pulmonary hypertension, unspecified; R59.0 Localized enlarged lymph nodes; R41.82 Altered mental status, unspecified; Z79.899 Other long term (current) drug therapy; Z79.01 Long term (current) use of anticoagulants; Z79.2 Long term (current) use of antibiotics; F17.200 Nicotine dependence, unspecified, uncomplicated; Z91.81 History of falling; Z51.5 Encounter for palliative care
CPT/HCPCS: 36600; 70450; 71250; 74176; 80048; 80076; 82140; 82550; 82553; 82803; 83605; 84443; 84484; 85025; 87040; 93005; 93041; 94660; 96360; 96361; 99291; G0378; G0480